=== PATIENT | female | born 1965 | race Caucasian/White ===

== ENCOUNTER → 2017-11-18 | Outpatient (CLI) | payer MEDICAID ==
[~2017-11-18] MED LIST: ANTIHISTAMINE PO
[2017-11-18 12:01] LABS: INTERNATIONAL NORMALIZED RATIO 0.96 (0.93-1.1); PROTHROMBIN TIME 9.9 Seconds (9.6-11.5)
[2017-11-18 12:06] LABS: ALBUMIN 3.9 g/dL (3.4-5.0); ANION GAP 6 mmol/L (5-15); CALCIUM 8.6 mg/dL (8.5-10.1); CHLORIDE 103 mmol/L (98-107)
[2017-11-18 12:09] LABS: ALANINE AMINOTRANSFERASE 19 U/L (12-78); ALKALINE PHOSPHATASE 87 U/L (45-117); BILIRUBIN,TOTAL 0.4 mg/dL (0.2-1.0); CREATININE 1.03 mg/dL (0.55-1.02); TOTAL PROTEIN 8.3 g/dL (6.4-8.2)
[2017-11-18 12:10] LABS: BASOPHILS # (AUTO) 0.11 x10^3/uL (0-0.1); BASOPHILS % (AUTO) 1 % (0-1); EOSINOPHILS # (AUTO) 0.34 x10^3/uL (0-0.4); EOSINOPHILS % (AUTO) 3 % (1-7); LYMPHOCYTES # (AUTO) 3.18 x10^3/uL (1-3.4); LYMPHOCYTES % (AUTO) 30 % (22-44); MD NO; MEAN CORPUSCULAR HEMOGLOBIN 31.4 pg (27.0-34.8); MEAN CORPUSCULAR VOLUME 94.9 fL (80-100); MEAN PLATELET VOLUME 9.2 fL (7.4-10.4); MONOCYTES # (AUTO) 0.82 x10^3/uL (0.2-0.8); MONOCYTES % (AUTO) 8 % (2-9); NEUTROPHILS # (AUTO) 6.03 x10^3/uL (1.8-6.8); NEUTROPHILS % (AUTO) 58 % (42-75); PLATELET COUNT 276 x10^3/uL (130-400); RED BLOOD COUNT 4.93 x10^6/uL (3.82-5.3); RED CELL DISTRIBUTION WIDTH 14.8 % (9.6-15.2)
== END | disposition home or self-care (01) ==
LOC: STAR 10:37
PROVIDERS: ATTEND Specialist
DX: Z01.818 Encounter for other preprocedural examination (principal)
CPT/HCPCS: 36415; 71046; 80053; 85025; 85610; 85730; 93005

== ENCOUNTER 2017-11-22 06:18 | Inpatient (IN) | payer MEDICAID ==
[~2017-11-22] VITALS: Ht 162.6 cm; Wt 99.7 kg
[2017-11-22] MEDS ORDERED: BUPIVACAINE/PF 0.25% ONE (06:51)
[2017-11-22] MEDS ORDERED: LACTATED RINGERS 1,000 ML IV SCH (07:17)
[2017-11-22] MEDS ORDERED: SCOPOLAMINE PATCH, 1.5MG PATCH.TD72 TD ONE (07:30)
[2017-11-22] MEDS ORDERED: ACETAMINOPHEN 500 MG TABLET PO ONE (07:30)
[2017-11-22] MEDS ORDERED: OxyconTIN ER 10 MG TAB.ER PO ONE (07:30)
[2017-11-22] MEDS ORDERED: GABAPENTIN 300 MG CAPSULE PO ONE (07:30)
[2017-11-22 07:32] LABS: HCG UR SG 1.029 (1.003-1.030)
[2017-11-22 07:54] VITALS: BP 132/84
[2017-11-22] MEDS ORDERED: MIDAZOLAM 1 MG/ML, 2ML ONE (08:37)
[2017-11-22] MEDS ORDERED: FENTANYL PF 250 MCG/5ML ONE (08:37)
[2017-11-22] MEDS ORDERED: ONDANSETRON 2MG/ML, 2ML ONE (09:48)
[2017-11-22] MEDS ORDERED: DEXAMETHASONE 4 MG/ML, 1ML ONE (09:48)
[2017-11-22] MEDS ORDERED: GLYCOPYRROLATE 0.2MG/1ML, 5ML ONE (09:48)
[2017-11-22] MEDS ORDERED: CEFAZOLIN 1,000 MG ONE (09:48)
[2017-11-22] MEDS ORDERED: PROPOFOL 10 MG/ML, 20ML ONE (09:48)
[2017-11-22] MEDS ORDERED: SUCCINYLCHOLINE 20 MG/ML, 10ML ONE (09:48)
[2017-11-22] MEDS ORDERED: ROCURONIUM 10 MG/ML,10ML ONE (09:48)
[2017-11-22] MEDS ORDERED: NEOSTIGMINE 1 MG/ML, 10ML ONE (09:48)
[2017-11-22] MEDS ORDERED: ONDANSETRON 2MG/ML, 2ML IVPush PRN ×2 (10:30)
[2017-11-22] MEDS ORDERED: FENTANYL PF 100 MCG/2ML IV PRN (10:30)
[2017-11-22] MEDS ORDERED: PROMETHAZINE 25 MG/ML, 1ML IV PRN ×2 (10:30)
[2017-11-22] MEDS ORDERED: hydrALAzine 20 MG/ML, 1ML IV PRN ×2 (10:30)
[2017-11-22] MEDS ORDERED: OXYcodone 5 MG/5 ML ORAL.SOL UDC PO PRN ×2 (10:30)
[2017-11-22] MEDS ORDERED: HYDROmorphone 1 MG/ML, 1ML IV PRN ×2 (10:30)
[2017-11-22] MEDS ORDERED: MEPERIDINE/PF 25MG/0.5ML IVPush PRN ×2 (10:30)
[2017-11-22] MEDS ORDERED: LABETALOL 5MG/ML, 20ML IV PRN ×2 (10:30)
[2017-11-22] MEDS ORDERED: KETOROLAC 30 MG/1 ML IV PRN ×2 (10:30)
[2017-11-22] MEDS ORDERED: METOCLOPRAMIDE 5 MG/ML, 2ML IV PRN ×2 (10:30)
[2017-11-22] MEDS ORDERED: ALBUTEROL SULFATE 2.5 MG/3 ML NPPB PRN ×2 (10:30)
[2017-11-22] MEDS ORDERED: FENTANYL PF 100 MCG/2ML ONE (12:34)
[2017-11-22] MEDS ORDERED: OXYcodone 5 MG/5 ML ORAL.SOL UDC ONE (12:34)
[2017-11-22] MEDS ORDERED: MEPERIDINE/PF 25MG/0.5ML ONE (12:34)
[2017-11-22] MEDS: FENTANYL PF 100 MCG/2ML IV PRN ×2 (12:37→12:43)
[2017-11-22] MEDS ORDERED: ONDANSETRON 2MG/ML, 2ML IV PRN (14:00)
[2017-11-22] MEDS: OXYcodone/APAP 5/325MG TABLET PO PRN ×2 (18:26→22:50)
[2017-11-22] MEDS: LACTATED RINGERS 1,000 ML IV SCH (18:26)
[2017-11-22 19:44] VITALS: BP 152/109
[2017-11-22] MEDS: MORPHINE SULFATE 4 MG/ML, 1ML IVPush PRN (21:20)
[2017-11-23] MEDS: OXYcodone/APAP 5/325MG TABLET PO PRN ×4 (02:57→20:09)
[2017-11-23 05:00] VITALS: BP 121/71
[2017-11-23] MEDS: LACTATED RINGERS 1,000 ML IV SCH ×2 (07:58→20:12)
[2017-11-23 11:09] VITALS: BP 128/87
[2017-11-23] MEDS: MORPHINE SULFATE 4 MG/ML, 1ML IVPush PRN (11:23)
[2017-11-23] MEDS ORDERED: LORazepam 1MG TABLET PO PRN (11:30)
[2017-11-23 16:00] VITALS: BP 124/76
[2017-11-23] MEDS ORDERED: MORPHINE SULFATE 4 MG/ML, 1ML IVPush PRN (17:00)
[2017-11-23 19:33] VITALS: BP 132/82
[2017-11-24] MEDS: OXYcodone/APAP 5/325MG TABLET PO PRN ×3 (01:40→10:40)
[2017-11-24 04:47] VITALS: BP 147/84
[2017-11-24 07:44] VITALS: BP 136/88
[2017-11-24] MEDS: LACTATED RINGERS 1,000 ML IV SCH (08:30)
[2017-11-24] MEDS ORDERED: OXYC-306 PO (12:05)
[2017-11-24] MEDS ORDERED: ONDA4TAB7 PO (12:05)
== END 2017-11-24 12:32 | disposition home health service (06) | DRG 745 ==
LOC: OUT 06:18 → 4NOR 13:32 → OUT 13:46
PROVIDERS: ADMIT Specialist; ATTEND Specialist
PROC: 0JBC0ZZ Excision of Pelvic Region Subcutaneous Tissue and Fascia, Open Approach (ICD-10-PCS; 2017-11-22)
PROC: 0UDB7ZZ Extraction of Endometrium, Via Natural or Artificial Opening (ICD-10-PCS; 2017-11-22)
PROC: 0UBC7ZX Excision of Cervix, Via Natural or Artificial Opening, Diagnostic (ICD-10-PCS; principal; 2017-11-22 09:00)
DX: C54.1 Malignant neoplasm of endometrium (principal); N88.8 Other specified noninflammatory disorders of cervix uteri; Z80.3 Family history of malignant neoplasm of breast; Z80.49 Family history of malignant neoplasm of other genital organs; Z82.3 Family history of stroke; Z98.51 Tubal ligation status; E66.9 Obesity, unspecified; Z68.37 Body mass index [BMI] 37.0-37.9, adult
CPT/HCPCS: 36415; 81025; 86850; 86900; 88305; 88307; 88331; J0690; J1100; J2175; J2250; J2405; J2704; J2710; J3010; J3490; J0330; J7120

== ENCOUNTER → 2017-12-08 | Outpatient (CLI) | payer MEDICAID ==
[~2017-12-08] MED LIST changes: +OMNIPAQUE 350 MG/ML, 100ML BOTTLE ONE; +ONDA4TAB7 PO; +OXYC-306 PO
== END | disposition home or self-care (01) ==
LOC: RAD 13:44
PROVIDERS: ATTEND Specialist
DX: C54.1 Malignant neoplasm of endometrium (principal); N85.2 Hypertrophy of uterus; R93.8 Abnormal findings on diagnostic imaging of other specified body structures; E66.9 Obesity, unspecified
CPT/HCPCS: 71260; 74177; Q9967

== ENCOUNTER 2017-12-13 08:45 | Observation (INO) | payer MEDICAID ==
[~2017-12-13] VITALS: Ht 162.6 cm; Wt 99.3 kg
[~2017-12-13 08:45] MED LIST changes: +BUPIVACAINE 0.25% ONE; -OMNIPAQUE 350 MG/ML, 100ML BOTTLE ONE
[2017-12-13] MEDS ORDERED: LACTATED RINGERS 1,000 ML IV SCH (09:21)
[2017-12-13 09:24] VITALS: BP 136/91
[2017-12-13] MEDS ORDERED: ACETAMINOPHEN 500 MG TABLET PO ONE (11:59)
[2017-12-13] MEDS ORDERED: GABAPENTIN 300 MG CAPSULE PO ONE (11:59)
[2017-12-13] MEDS ORDERED: ONDANSETRON ODT 8 MG PO ONE (11:59)
[2017-12-13] MEDS ORDERED: SCOPOLAMINE PATCH, 1.5MG PATCH.TD72 TD ONE (11:59)
[2017-12-13] MEDS ORDERED: OxyconTIN ER 20 MG TAB.ER PO ONE (11:59)
[2017-12-13] MEDS ORDERED: FENTANYL PF 250 MCG/5ML ONE (12:09)
[2017-12-13] MEDS ORDERED: MIDAZOLAM 1 MG/ML, 2ML ONE (12:09)
[2017-12-13] MEDS ORDERED: LIDOCAINE-MPF 2% ,5ML ONE (12:11)
[2017-12-13] MEDS ORDERED: ROCURONIUM 10MG/ML,5ML ONE (12:11)
[2017-12-13] MEDS ORDERED: PROPOFOL 10 MG/ML, 20ML ONE (12:11)
[2017-12-13] MEDS ORDERED: DEXAMETHASONE 4 MG/ML, 1ML ONE ×4 (12:43→15:37)
[2017-12-13] MEDS ORDERED: CEFOTETAN 2 GM ONE (13:02)
[2017-12-13] MEDS ORDERED: FENTANYL PF 100 MCG/2ML IV PRN (13:30)
[2017-12-13] MEDS ORDERED: PROMETHAZINE 25 MG/ML, 1ML IV PRN (13:30)
[2017-12-13] MEDS ORDERED: hydrALAzine 20 MG/ML, 1ML IV PRN (13:30)
[2017-12-13] MEDS ORDERED: OXYcodone 5 MG/5 ML ORAL.SOL UDC PO PRN (13:30)
[2017-12-13] MEDS ORDERED: LABETALOL 5MG/ML, 20ML IV PRN (13:30)
[2017-12-13] MEDS ORDERED: MEPERIDINE/PF 25MG/0.5ML IVPush PRN (13:30)
[2017-12-13] MEDS ORDERED: LORazepam 2 MG/ML, 1ML IVPush PRN (13:30)
[2017-12-13] MEDS ORDERED: HALOPERIDOL 5 MG/ML IV PRN (13:30)
[2017-12-13] MEDS ORDERED: FENTANYL PF 100 MCG/2ML ONE ×2 (14:19→15:46)
[2017-12-13] MEDS: HYDROmorphone 1 MG/ML, 1ML IV PRN ×4 (15:12→15:42)
[2017-12-13] MEDS ORDERED: HYDROmorphone 2 MG/ML, 1ML ONE (15:20)
[2017-12-13] MEDS ORDERED: OXYcodone 5 MG/5 ML ORAL.SOL UDC ONE (15:21)
[2017-12-13] MEDS ORDERED: HALOPERIDOL 5 MG/ML ONE (15:30)
[2017-12-13] MEDS ORDERED: MORPHINE SULFATE 4 MG/ML, 1ML IV PRN (18:30)
[2017-12-13] MEDS ORDERED: ONDANSETRON ODT 4 MG PO PRN (18:30)
[2017-12-13] MEDS ORDERED: ONDANSETRON 2MG/ML, 2ML IVPush PRN (18:30)
[2017-12-13 19:30] VITALS: BP 141/81
[2017-12-13] MEDS: OXYcodone/APAP 7.5/325MG TABLET PO PRN (22:05)
[2017-12-13] MEDS: METOCLOPRAMIDE 5 MG/ML, 2ML IVPush SCH (22:06)
[2017-12-14 00:05] VITALS: BP 126/80
[2017-12-14] MEDS: OXYcodone/APAP 7.5/325MG TABLET PO PRN ×2 (01:51→06:05)
[2017-12-14] MEDS: METOCLOPRAMIDE 5 MG/ML, 2ML IVPush SCH ×2 (04:11→09:24)
[2017-12-14 04:16] VITALS: BP 141/88
[2017-12-14 08:30] VITALS: BP 132/78
[2017-12-14] MEDS ORDERED: ONDA4TAB7 PO (09:46)
== END 2017-12-14 09:55 | disposition home or self-care (01) ==
LOC: OUT 08:45 → 4NOR 18:00 → OUT 19:52 → 4NOR 19:53 → DCLOUNGE 12-14 09:42
PROVIDERS: ADMIT Specialist; ATTEND Specialist
DX: C49.9 Malignant neoplasm of connective and soft tissue, unspecified (principal); N85.2 Hypertrophy of uterus; E66.9 Obesity, unspecified
CPT/HCPCS: 58573; 88309; 96374; 96376; G0378; J1100; J1170; J1630; J2250; J2704; J2765; J3010; J3490; J7120; Q0162; S2900; S0074

== ENCOUNTER 2020-07-16 08:19 | Inpatient (IN) | payer MEDICAID ==
[2020-07-15 09:20] LABS: BASOPHILS % (AUTO) 1 % (0-1); EOSINOPHILS % (AUTO) 5 % (1-7); LYMPHOCYTES % (AUTO) 21 % (22-44); MEAN CORPUSCULAR HEMOGLOBIN 31.6 pg (27.0-34.8); MEAN CORPUSCULAR HGB CONC 33.6 g/dL (32.4-35.8); MEAN PLATELET VOLUME 6.5 fL (7.4-10.4); MONOCYTES % (AUTO) 7 % (2-9); NEUTROPHILS % (AUTO) 67 % (42-75); PLATELET COUNT 421 x10^3/uL (130-400); RED BLOOD COUNT 3.98 x10^6/uL (3.82-5.3)
[2020-07-15 09:32] LABS: ALBUMIN 3.3 g/dL (3.4-5.0); CALCIUM 9.2 mg/dL (8.5-10.1); INTERNATIONAL NORMALIZED RATIO 0.95 (0.93-1.1); PROTHROMBIN TIME 10.2 Seconds (9.6-11.5)
[2020-07-15 09:35] LABS: MD NO
[2020-07-15 09:36] LABS: ALANINE AMINOTRANSFERASE 19 U/L (12-78); ALKALINE PHOSPHATASE 158 U/L (45-117); BILIRUBIN,TOTAL 0.3 mg/dL (0.2-1.0); CREATININE 0.93 mg/dL (0.55-1.02); TOTAL PROTEIN 8.2 g/dL (6.4-8.2)
[2020-07-15 09:44] LABS: ANION GAP 7 mmol/L (5-15); CHLORIDE 101 mmol/L (98-107)
[~2020-07-16] VITALS: Ht 162.6 cm; Wt 74.3 kg
[~2020-07-16 08:19] MED LIST changes: -BUPIVACAINE 0.25% ONE; +LEVO150T5 PO; -OXYC-306 PO; +OXYC1TAB14 PO; +OXYC1TAB17 PO; +[UNRECOGNIZED DRUG - OTHER]; +[UNRECOGNIZED DRUG - OTHER] PO
[2020-07-16] MEDS ORDERED: CHLORHEXIDINE 15 ML UDC MM ONE (09:00)
[2020-07-16] MEDS: LACTATED RINGERS 1,000 ML IV SCH (09:17)
[2020-07-16] MEDS ORDERED: CEFOTETAN PMX 2GM/50ML 50 ML IVPB ONE (09:30)
[2020-07-16] MEDS ORDERED: OXYcodone/APAP 5/325MG TABLET PO ONE (13:00)
[2020-07-16] MEDS ORDERED: MIDAZOLAM 1 MG/ML, 2ML ONE (13:41)
[2020-07-16] MEDS ORDERED: FENTANYL PF 250 MCG/5ML ONE ×3 (13:42→15:32)
[2020-07-16] MEDS ORDERED: KETAMINE 10 MG/ML, 20ML ONE (13:43)
[2020-07-16] MEDS ORDERED: ALBUMIN HUMAN 5% 500 ML ONE (13:47)
[2020-07-16] MEDS ORDERED: DEXAMETHASONE 4 MG/ML, 1ML ONE (13:48)
[2020-07-16] MEDS ORDERED: hydrALAzine 20 MG/ML, 1ML IV PRN (15:30)
[2020-07-16] MEDS ORDERED: HYDROmorphone 1 MG/ML, 1ML INJ IVPush PRN (15:30)
[2020-07-16] MEDS ORDERED: MEPERIDINE/PF 25MG/0.5ML IVPush PRN (15:30)
[2020-07-16] MEDS ORDERED: ONDANSETRON 2MG/ML, 2ML IVPush PRN ×2 (15:30→21:00)
[2020-07-16] MEDS ORDERED: ACETAMINOPHEN 325 MG TABLET PO PRN (15:30)
[2020-07-16] MEDS ORDERED: LORazepam 2 MG/ML, 1ML IVPush PRN (15:30)
[2020-07-16] MEDS ORDERED: PROMETHAZINE 25 MG/ML, 1ML IVPush PRN (15:30)
[2020-07-16] MEDS ORDERED: OXYcodone 5 MG/5 ML ORAL.SOL UDC PO PRN (15:30)
[2020-07-16] MEDS ORDERED: ALBUTEROL SULFATE 2.5 MG/3 ML NPPB PRN (15:30)
[2020-07-16] MEDS ORDERED: LABETALOL 5MG/ML, 20ML IV PRN (15:30)
[2020-07-16] MEDS ORDERED: METHOCARBAMOL 1,000 MG in DEXTROSE 5% 100 ML IV PRN (15:30)
[2020-07-16] MEDS ORDERED: PROMETHAZINE 25 MG SUPP PR PRN (15:30)
[2020-07-16] MEDS ORDERED: ROCURONIUM 10MG/ML,5ML ONE (19:44)
[2020-07-16] MEDS ORDERED: GLYCOPYRROLATE 0.2MG/1ML, 5ML ONE (19:44)
[2020-07-16] MEDS ORDERED: NEOSTIGMINE 1 MG/ML, 10ML ONE (19:44)
[2020-07-16] MEDS ORDERED: PROPOFOL 10 MG/ML, 20ML ONE (19:44)
[2020-07-16] MEDS ORDERED: CEFAZOLIN 1,000 MG ONE (19:44)
[2020-07-16] MEDS ORDERED: SUCCINYLCHOLINE 20 MG/ML, 10ML ONE (19:44)
[2020-07-16] MEDS ORDERED: ONDANSETRON 2MG/ML, 2ML ONE (19:44)
[2020-07-16] MEDS ORDERED: KETOROLAC 30 MG/1 ML IV SCH (20:30)
[2020-07-16] MEDS ORDERED: PROCHLORPERAZINE 5 MG/ML, 2ML IV PRN (20:30)
[2020-07-16] MEDS ORDERED: POTASSIUM CHLORIDE 20 MEQ in D5%-0.45% NACL 1,000 ML IV SCH (20:30)
[2020-07-16] MEDS ORDERED: KETOROLAC 30 MG/1 ML IV PRN (21:00)
[2020-07-16] MEDS: FENTANYL PF 100 MCG/2ML IV PRN ×2 (21:00→21:16)
[2020-07-16] MEDS ORDERED: KETOROLAC 30 MG/1 ML ONE (21:27)
[2020-07-16 22:22] VITALS: BP 96/57
[2020-07-16] MEDS: D5%-0.9% NACL+KCL 20MEQ 1,000 ML IV SCH (23:41)
[2020-07-16] MEDS: FAMOTIDINE 20 MG/2 ML IV SCH (23:41)
[2020-07-17 00:59] VITALS: BP 112/79
[2020-07-17 04:42] VITALS: BP 98/61
[2020-07-17 05:27] LABS: BASOPHILS % (AUTO) 0 % (0-1); EOSINOPHILS % (AUTO) 0 % (1-7); LYMPHOCYTES % (AUTO) 12 % (22-44); MEAN CORPUSCULAR HEMOGLOBIN 31.2 pg (27.0-34.8); MEAN CORPUSCULAR HGB CONC 32.5 g/dL (32.4-35.8); MONOCYTES % (AUTO) 5 % (2-9); NEUTROPHILS % (AUTO) 82 % (42-75); PLATELET COUNT 340 x10^3/uL (130-400); RED BLOOD COUNT 2.56 x10^6/uL (3.82-5.3); RED CELL DISTRIBUTION WIDTH 14.7 % (9.6-15.2)
[2020-07-17 05:30] LABS: MD NO
[2020-07-17 05:34] LABS: ALBUMIN 2.5 g/dL (3.4-5.0); ANION GAP 9 mmol/L (5-15); CALCIUM 7.7 mg/dL (8.5-10.1); CHLORIDE 110 mmol/L (98-107)
[2020-07-17 05:35] LABS: CREATININE 1.21 mg/dL (0.55-1.02)
[2020-07-17] MEDS: CEFOTETAN PMX 2GM/50ML 50 ML IV SCH ×2 (05:57→18:00)
[2020-07-17] MEDS: D5%-0.9% NACL+KCL 20MEQ 1,000 ML IV SCH ×3 (05:57→23:34)
[2020-07-17] MEDS: LEVOTHYROXINE 100 MCG INJ IVPush SCH (07:46)
[2020-07-17] MEDS: FAMOTIDINE 20 MG/2 ML IV SCH (07:46)
[2020-07-17 08:00] VITALS: BP 98/63
[2020-07-17 20:00] VITALS: BP 98/60
[2020-07-17] MEDS ORDERED: FAMOTIDINE 20 MG/2 ML IV SCH (21:00)
[2020-07-17] MEDS: LORazepam 2 MG/ML, 1ML IVPush PRN (21:55)
[2020-07-18] VITALS (11 sets, daily range): BP systolic 96–135; BP diastolic 47–89
[2020-07-18] MEDS: LORazepam 2 MG/ML, 1ML IVPush PRN ×2 (03:43→16:12)
[2020-07-18 04:52] LABS: ANION GAP 5 mmol/L (5-15); CALCIUM 7.7 mg/dL (8.5-10.1); CHLORIDE 111 mmol/L (98-107); CREATININE 0.88 mg/dL (0.55-1.02)
[2020-07-18 04:57] LABS: BASOPHILS % (AUTO) 0 % (0-1); EOSINOPHILS % (AUTO) 0 % (1-7); LYMPHOCYTES % (AUTO) 13 % (22-44); MEAN CORPUSCULAR HEMOGLOBIN 32.3 pg (27.0-34.8); MEAN CORPUSCULAR HGB CONC 34.3 g/dL (32.4-35.8); MONOCYTES % (AUTO) 6 % (2-9); NEUTROPHILS % (AUTO) 80 % (42-75); PLATELET COUNT 282 x10^3/uL (130-400); RED BLOOD COUNT 2.09 x10^6/uL (3.82-5.3); RED CELL DISTRIBUTION WIDTH 14.8 % (9.6-15.2)
[2020-07-18 05:09] LABS: MD NO
[2020-07-18] MEDS: CEFOTETAN PMX 2GM/50ML 50 ML IV SCH ×2 (06:14→17:36)
[2020-07-18] MEDS: LEVOTHYROXINE 100 MCG INJ IVPush SCH (09:00)
[2020-07-18] MEDS: D5%-0.9% NACL+KCL 20MEQ 1,000 ML IV SCH ×2 (10:11→17:35)
[2020-07-18] MEDS: FAMOTIDINE 20 MG/2 ML IV SCH (20:26)
[2020-07-18] MEDS ORDERED: LORazepam 2 MG/ML, 1ML IVPush ONE (20:30)
[2020-07-19 01:27] VITALS: BP 137/88
[2020-07-19] MEDS: D5%-0.9% NACL+KCL 20MEQ 1,000 ML IV SCH ×3 (01:45→18:32)
[2020-07-19] MEDS: LORazepam 2 MG/ML, 1ML IVPush PRN ×3 (01:45→18:33)
[2020-07-19] MEDS: DIPHENHYDRAMINE 50 MG/ML, 1ML IVPush PRN (04:07)
[2020-07-19 05:33] LABS: BASOPHILS % (AUTO) 0 % (0-1); EOSINOPHILS % (AUTO) 1 % (1-7); LYMPHOCYTES % (AUTO) 12 % (22-44); MEAN CORPUSCULAR HEMOGLOBIN 31.4 pg (27.0-34.8); MEAN CORPUSCULAR HGB CONC 34.1 g/dL (32.4-35.8); MEAN PLATELET VOLUME 6.9 fL (7.4-10.4); MONOCYTES % (AUTO) 5 % (2-9); NEUTROPHILS % (AUTO) 82 % (42-75); PLATELET COUNT 294 x10^3/uL (130-400)
[2020-07-19 05:36] LABS: MD NO
[2020-07-19 05:46] LABS: ALANINE AMINOTRANSFERASE 10 U/L (12-78); ALBUMIN 1.9 g/dL (3.4-5.0); ANION GAP 5 mmol/L (5-15); CHLORIDE 110 mmol/L (98-107)
[2020-07-19 05:49] LABS: ALKALINE PHOSPHATASE 96 U/L (45-117); BILIRUBIN,TOTAL 0.4 mg/dL (0.2-1.0); TOTAL PROTEIN 5.8 g/dL (6.4-8.2)
[2020-07-19] MEDS: CEFOTETAN PMX 2GM/50ML 50 ML IV SCH ×2 (06:03→18:32)
[2020-07-19 07:25] VITALS: BP 119/86
[2020-07-19] MEDS: LEVOTHYROXINE 100 MCG INJ IVPush SCH (09:15)
[2020-07-19] MEDS: FAMOTIDINE 20 MG/2 ML IV SCH ×2 (09:22→22:10)
[2020-07-19 12:59] VITALS: BP 131/91
[2020-07-19] MEDS: OXYcodone/APAP 7.5/325MG TABLET PO PRN (15:51)
[2020-07-19] MEDS: KETOROLAC 30 MG/1 ML IVPush PRN ×2 (15:51→22:11)
[2020-07-19 20:37] VITALS: BP 108/78
[2020-07-20 03:01] VITALS: BP 118/85
[2020-07-20] MEDS: D5%-0.9% NACL+KCL 20MEQ 1,000 ML IV SCH ×2 (03:28→12:10)
[2020-07-20] MEDS: LORazepam 2 MG/ML, 1ML IVPush PRN ×3 (06:40→21:38)
[2020-07-20] MEDS: KETOROLAC 30 MG/1 ML IVPush PRN ×3 (07:22→21:41)
[2020-07-20] MEDS: LEVOTHYROXINE 100 MCG INJ IVPush SCH (07:22)
[2020-07-20] MEDS: FAMOTIDINE 20 MG/2 ML IV SCH ×2 (07:22→21:22)
[2020-07-20] MEDS: OXYcodone/APAP 7.5/325MG TABLET PO PRN ×3 (07:23→18:42)
[2020-07-20 07:26] LABS: BASOPHILS % (AUTO) 0 % (0-1); EOSINOPHILS % (AUTO) 3 % (1-7); LYMPHOCYTES % (AUTO) 16 % (22-44); MEAN CORPUSCULAR HEMOGLOBIN 31.6 pg (27.0-34.8); MEAN CORPUSCULAR HGB CONC 33.7 g/dL (32.4-35.8); MEAN PLATELET VOLUME 6.9 fL (7.4-10.4); MONOCYTES % (AUTO) 7 % (2-9); NEUTROPHILS % (AUTO) 75 % (42-75); PLATELET COUNT 327 x10^3/uL (130-400); RED BLOOD COUNT 2.74 x10^6/uL (3.82-5.3); RED CELL DISTRIBUTION WIDTH 14.9 % (9.6-15.2)
[2020-07-20 07:28] LABS: MD NO
[2020-07-20 07:31] LABS: ANION GAP 5 mmol/L (5-15); CHLORIDE 112 mmol/L (98-107); CREATININE 0.87 mg/dL (0.55-1.02)
[2020-07-20 07:42] VITALS: BP 172/97
[2020-07-20 13:10] VITALS: BP 141/90
[2020-07-20 19:42] VITALS: BP 150/95
[2020-07-21 01:55] VITALS: BP 132/85
[2020-07-21] MEDS: OXYcodone/APAP 7.5/325MG TABLET PO PRN (01:59)
[2020-07-21] MEDS: LEVOTHYROXINE 150 MCG TABLET PO SCH (06:04)
[2020-07-21 07:19] VITALS: BP 142/85
[2020-07-21] MEDS: FAMOTIDINE 20 MG/2 ML IV SCH ×2 (09:56→20:36)
[2020-07-21] MEDS: LACTATED RINGERS 1,000 ML IV SCH (12:45)
[2020-07-21 13:09] VITALS: BP 125/83
[2020-07-21] MEDS: LORazepam 2 MG/ML, 1ML IVPush PRN (20:24)
[2020-07-21 20:31] VITALS: BP 125/78
[2020-07-21] MEDS: KETOROLAC 30 MG/1 ML IVPush PRN (20:31)
[2020-07-22 02:27] VITALS: BP 122/75
[2020-07-22 04:30] LABS: BASOPHILS % (AUTO) 1 % (0-1); EOSINOPHILS % (AUTO) 1 % (1-7); LYMPHOCYTES % (AUTO) 16 % (22-44); MEAN CORPUSCULAR HEMOGLOBIN 31.5 pg (27.0-34.8); MEAN CORPUSCULAR HGB CONC 34.2 g/dL (32.4-35.8); MEAN PLATELET VOLUME 7.1 fL (7.4-10.4); MONOCYTES % (AUTO) 8 % (2-9); NEUTROPHILS % (AUTO) 74 % (42-75); PLATELET COUNT 375 x10^3/uL (130-400); RED BLOOD COUNT 2.62 x10^6/uL (3.82-5.3); RED CELL DISTRIBUTION WIDTH 14.7 % (9.6-15.2)
[2020-07-22 04:34] LABS: MD NO
[2020-07-22 04:39] LABS: ANION GAP 7 mmol/L (5-15); CALCIUM 8.3 mg/dL (8.5-10.1); CHLORIDE 105 mmol/L (98-107); CREATININE 0.69 mg/dL (0.55-1.02)
[2020-07-22] MEDS: LEVOTHYROXINE 150 MCG TABLET PO SCH (06:42)
[2020-07-22] MEDS: FAMOTIDINE 20 MG/2 ML IV SCH ×2 (09:00→21:00)
[2020-07-22 12:40] VITALS: BP 131/84
[2020-07-22] MEDS: LORazepam 0.5MG TABLET PO PRN (15:05)
[2020-07-22] MEDS: KETOROLAC 30 MG/1 ML IVPush PRN (16:39)
[2020-07-22] MEDS: OXYcodone/APAP 7.5/325MG TABLET PO PRN (18:12)
[2020-07-22 19:22] VITALS: BP 104/70
[2020-07-22] MEDS ORDERED: CEFAZOLIN 1,000 MG IV SCH (21:00)
[2020-07-22] MEDS ORDERED: CEFAZOLIN 1,000 MG IVPB SCH (21:00)
[2020-07-22] MEDS: CEFAZOLIN PMX 1GM/50ML 50 ML IVPB SCH (22:28)
[2020-07-23 01:07] VITALS: BP 118/81
[2020-07-23 03:52] LABS: BASOPHILS % (AUTO) 0 % (0-1); EOSINOPHILS % (AUTO) 2 % (1-7); LYMPHOCYTES % (AUTO) 17 % (22-44); MEAN CORPUSCULAR HEMOGLOBIN 31.7 pg (27.0-34.8); MEAN CORPUSCULAR HGB CONC 34.4 g/dL (32.4-35.8); MEAN PLATELET VOLUME 6.8 fL (7.4-10.4); MONOCYTES % (AUTO) 8 % (2-9); NEUTROPHILS % (AUTO) 73 % (42-75); PLATELET COUNT 472 x10^3/uL (130-400); RED BLOOD COUNT 2.69 x10^6/uL (3.82-5.3); RED CELL DISTRIBUTION WIDTH 14.3 % (9.6-15.2)
[2020-07-23 03:53] LABS: MD NO
[2020-07-23] MEDS: CEFAZOLIN PMX 1GM/50ML 50 ML IVPB SCH ×4 (04:51→22:45)
[2020-07-23] MEDS: LEVOTHYROXINE 150 MCG TABLET PO SCH (05:00)
[2020-07-23 06:49] VITALS: BP 122/85
[2020-07-23] MEDS: FAMOTIDINE 20 MG/2 ML IV SCH ×2 (09:17→20:01)
[2020-07-23] MEDS: OXYcodone/APAP 7.5/325MG TABLET PO PRN (09:18)
[2020-07-23 12:44] VITALS: BP 107/71
[2020-07-23 19:26] VITALS: BP 115/79
[2020-07-23] MEDS: OXYcodone/APAP 7.5/325MG TABLET PO SCH (20:01)
[2020-07-24] MEDS: OXYcodone/APAP 7.5/325MG TABLET PO SCH ×6 (00:15→21:41)
[2020-07-24 00:19] VITALS: BP 112/77
[2020-07-24] MEDS: FAMOTIDINE 20 MG TABLET PO SCH (00:50)
[2020-07-24] MEDS: CEFAZOLIN PMX 1GM/50ML 50 ML IVPB SCH ×3 (04:05→16:06)
[2020-07-24 04:24] LABS: BASOPHILS % (AUTO) 0 % (0-1); EOSINOPHILS % (AUTO) 2 % (1-7); LYMPHOCYTES % (AUTO) 15 % (22-44); MEAN CORPUSCULAR HEMOGLOBIN 31.4 pg (27.0-34.8); MONOCYTES % (AUTO) 9 % (2-9); NEUTROPHILS % (AUTO) 74 % (42-75); PLATELET COUNT 510 x10^3/uL (130-400); RED BLOOD COUNT 2.67 x10^6/uL (3.82-5.3); RED CELL DISTRIBUTION WIDTH 14.4 % (9.6-15.2)
[2020-07-24 04:27] LABS: MD NO
[2020-07-24 04:37] LABS: ANION GAP 4 mmol/L (5-15); CALCIUM 8.5 mg/dL (8.5-10.1); CHLORIDE 105 mmol/L (98-107); CREATININE 0.63 mg/dL (0.55-1.02)
[2020-07-24] MEDS: LEVOTHYROXINE 150 MCG TABLET PO SCH (04:59)
[2020-07-24] MEDS: LORazepam 0.5MG TABLET PO PRN (04:59)
[2020-07-24 06:32] VITALS: BP 105/74
[2020-07-24] MEDS: FAMOTIDINE 20 MG/2 ML IV SCH (08:03)
[2020-07-24 13:17] VITALS: BP 121/82
[2020-07-24] MEDS ORDERED: VANCOMYCIN IV SCH (17:30)
[2020-07-24] MEDS: VANCOMYCIN PMX 1GM/200ML 200 ML IVPB SCH (18:19)
[2020-07-24] MEDS: MORPHINE SULFATE 4 MG/ML, 1ML IVPush PRN (18:37)
[2020-07-24 19:44] VITALS: BP 121/82
[2020-07-25] MEDS: OXYcodone/APAP 7.5/325MG TABLET PO SCH ×6 (00:47→20:34)
[2020-07-25 01:00] VITALS: BP 111/79
[2020-07-25] MEDS: VANCOMYCIN PMX 1GM/200ML 200 ML IVPB SCH ×2 (06:35→16:30)
[2020-07-25] MEDS: LEVOTHYROXINE 150 MCG TABLET PO SCH (06:36)
[2020-07-25 07:08] VITALS: BP 116/83
[2020-07-25] MEDS ORDERED: FAMOTIDINE 40 MG TABLET ONE ×2 (07:57→20:22)
[2020-07-25] MEDS: FAMOTIDINE 20 MG TABLET PO SCH ×2 (08:01→20:35)
[2020-07-25] MEDS: MORPHINE SULFATE 4 MG/ML, 1ML IVPush PRN (10:21)
[2020-07-25 10:48] LABS: BASOPHILS % (AUTO) 0 % (0-1); EOSINOPHILS % (AUTO) 1 % (1-7); LYMPHOCYTES % (AUTO) 12 % (22-44); MEAN CORPUSCULAR HEMOGLOBIN 30.8 pg (27.0-34.8); MEAN CORPUSCULAR HGB CONC 33.3 g/dL (32.4-35.8); MEAN PLATELET VOLUME 7.4 fL (7.4-10.4); MONOCYTES % (AUTO) 6 % (2-9); NEUTROPHILS % (AUTO) 80 % (42-75); PLATELET COUNT 610 x10^3/uL (130-400); RED BLOOD COUNT 2.63 x10^6/uL (3.82-5.3); RED CELL DISTRIBUTION WIDTH 14.8 % (9.6-15.2)
[2020-07-25 10:55] LABS: MD NO
[2020-07-25 13:30] VITALS: BP 107/78
[2020-07-25 19:21] VITALS: BP 119/82
[2020-07-26 00:12] VITALS: BP 125/74
[2020-07-26] MEDS: OXYcodone/APAP 7.5/325MG TABLET PO SCH ×3 (00:15→08:12)
[2020-07-26] MEDS: MORPHINE SULFATE 4 MG/ML, 1ML IVPush PRN (02:55)
[2020-07-26] MEDS: LEVOTHYROXINE 150 MCG TABLET PO SCH (04:22)
[2020-07-26] MEDS: VANCOMYCIN PMX 1GM/200ML 200 ML IVPB SCH ×2 (05:09→17:12)
[2020-07-26 05:33] LABS: BASOPHILS % (AUTO) 0 % (0-1); EOSINOPHILS % (AUTO) 1 % (1-7); LYMPHOCYTES % (AUTO) 10 % (22-44); MEAN CORPUSCULAR HEMOGLOBIN 30.5 pg (27.0-34.8); MEAN CORPUSCULAR HGB CONC 33.3 g/dL (32.4-35.8); MEAN PLATELET VOLUME 7.7 fL (7.4-10.4); MONOCYTES % (AUTO) 6 % (2-9); NEUTROPHILS % (AUTO) 82 % (42-75); PLATELET COUNT 659 x10^3/uL (130-400); RED BLOOD COUNT 2.76 x10^6/uL (3.82-5.3); RED CELL DISTRIBUTION WIDTH 14.7 % (9.6-15.2)
[2020-07-26 05:34] LABS: MD NO
[2020-07-26 05:50] LABS: ANION GAP 7 mmol/L (5-15); CALCIUM 8.2 mg/dL (8.5-10.1); CHLORIDE 103 mmol/L (98-107); CREATININE 0.74 mg/dL (0.55-1.02)
[2020-07-26 07:14] VITALS: BP 114/76
[2020-07-26] MEDS ORDERED: FAMOTIDINE 40 MG TABLET ONE (08:10)
[2020-07-26] MEDS: FAMOTIDINE 20 MG TABLET PO SCH ×2 (08:13→20:11)
[2020-07-26] MEDS: OXYcodone/APAP 10/325MG TABLET PO SCH ×3 (12:29→20:10)
[2020-07-26 12:35] VITALS: BP 133/68
[2020-07-26] MEDS ORDERED: OMNIPAQUE 350 MG/ML, 100ML BOTTLE ONE (14:46)
[2020-07-26 19:57] VITALS: BP 104/73
[2020-07-26] MEDS: LORazepam 0.5MG TABLET PO PRN (22:05)
[2020-07-27] MEDS: OXYcodone/APAP 10/325MG TABLET PO SCH ×6 (00:05→20:43)
[2020-07-27 00:07] VITALS: BP 112/67
[2020-07-27 04:42] LABS: BASOPHILS % (AUTO) 1 % (0-1); EOSINOPHILS % (AUTO) 1 % (1-7); LYMPHOCYTES % (AUTO) 12 % (22-44); MEAN CORPUSCULAR HEMOGLOBIN 30.7 pg (27.0-34.8); MEAN CORPUSCULAR HGB CONC 33.6 g/dL (32.4-35.8); MEAN PLATELET VOLUME 7.4 fL (7.4-10.4); MONOCYTES % (AUTO) 6 % (2-9); NEUTROPHILS % (AUTO) 81 % (42-75); PLATELET COUNT 759 x10^3/uL (130-400); RED BLOOD COUNT 2.78 x10^6/uL (3.82-5.3); RED CELL DISTRIBUTION WIDTH 14.6 % (9.6-15.2)
[2020-07-27 04:47] LABS: MD NO
[2020-07-27] MEDS: LEVOTHYROXINE 150 MCG TABLET PO SCH (05:11)
[2020-07-27] MEDS: VANCOMYCIN PMX 1GM/200ML 200 ML IVPB SCH ×2 (05:11→16:43)
[2020-07-27 06:35] VITALS: BP 121/81
[2020-07-27] MEDS ORDERED: FAMOTIDINE 40 MG TABLET ONE (08:49)
[2020-07-27] MEDS: FAMOTIDINE 20 MG TABLET PO SCH ×2 (08:52→20:43)
[2020-07-27] MEDS: LORazepam 0.5MG TABLET PO PRN ×2 (11:13→19:46)
[2020-07-27] MEDS: KETOROLAC 30 MG/1 ML IVPush PRN (11:15)
[2020-07-27 12:16] VITALS: BP 107/75
[2020-07-27] MEDS: ENOXAPARIN 40 MG/0.4 ML SQ SCH (16:41)
[2020-07-27 18:40] VITALS: BP 97/62
[2020-07-28] MEDS: OXYcodone/APAP 10/325MG TABLET PO SCH ×6 (00:15→20:52)
[2020-07-28 01:21] VITALS: BP 111/75
[2020-07-28 01:25] VITALS: BP 114/63
[2020-07-28] MEDS: VANCOMYCIN PMX 1GM/200ML 200 ML IVPB SCH ×2 (04:23→16:44)
[2020-07-28] MEDS: LORazepam 0.5MG TABLET PO PRN ×2 (06:02→12:41)
[2020-07-28] MEDS: LEVOTHYROXINE 150 MCG TABLET PO SCH (06:02)
[2020-07-28 07:43] VITALS: BP 125/80
[2020-07-28] MEDS ORDERED: FAMOTIDINE 40 MG TABLET ONE (09:25)
[2020-07-28] MEDS: FAMOTIDINE 20 MG TABLET PO SCH ×2 (09:26→20:52)
[2020-07-28 12:26] VITALS: BP 128/88
[2020-07-28] MEDS: KETOROLAC 30 MG/1 ML IVPush PRN (12:41)
[2020-07-28] MEDS: ENOXAPARIN 40 MG/0.4 ML SQ SCH (16:36)
[2020-07-28 18:33] VITALS: BP 112/70
[2020-07-28] MEDS ORDERED: VANCOMYCIN PER PHARMACY MC PRN (21:30)
[2020-07-28] MEDS ORDERED: PHARMACOKINETIC CONSULTATION MC ONE (22:00)
[2020-07-28] MEDS ORDERED: PHARMACOKINETIC MONITORING MC PRN (22:00)
[2020-07-29] MEDS: OXYcodone/APAP 10/325MG TABLET PO SCH ×6 (00:37→20:00)
[2020-07-29 00:40] VITALS: BP 104/69
[2020-07-29] MEDS: LORazepam 0.5MG TABLET PO PRN ×2 (03:03→14:25)
[2020-07-29 04:22] LABS: BASOPHILS % (AUTO) 1 % (0-1); EOSINOPHILS % (AUTO) 1 % (1-7); LYMPHOCYTES % (AUTO) 24 % (22-44); MEAN CORPUSCULAR HEMOGLOBIN 30.8 pg (27.0-34.8); MEAN PLATELET VOLUME 7.5 fL (7.4-10.4); MONOCYTES % (AUTO) 8 % (2-9); NEUTROPHILS % (AUTO) 67 % (42-75); PLATELET COUNT 758 x10^3/uL (130-400); RED BLOOD COUNT 2.51 x10^6/uL (3.82-5.3); RED CELL DISTRIBUTION WIDTH 14.8 % (9.6-15.2)
[2020-07-29 04:28] LABS: MD NO
[2020-07-29 04:32] LABS: ANION GAP 7 mmol/L (5-15); CALCIUM 7.9 mg/dL (8.5-10.1); CHLORIDE 104 mmol/L (98-107); CREATININE 0.74 mg/dL (0.55-1.02)
[2020-07-29] MEDS: LEVOTHYROXINE 150 MCG TABLET PO SCH (04:32)
[2020-07-29 04:33] LABS: VANCOMYCIN,TROUGH 12.8 mcg/mL (5.0-10.0)
[2020-07-29] MEDS: VANCOMYCIN PMX 1GM/200ML 200 ML IVPB SCH (07:09)
[2020-07-29 07:21] VITALS: BP 110/76
[2020-07-29] MEDS ORDERED: FAMOTIDINE 40 MG TABLET ONE ×2 (07:59→20:21)
[2020-07-29] MEDS: FAMOTIDINE 20 MG TABLET PO SCH ×2 (08:05→20:26)
[2020-07-29 13:21] VITALS: BP 104/74
[2020-07-29] MEDS: ENOXAPARIN 40 MG/0.4 ML SQ SCH (16:41)
[2020-07-29] MEDS: FLUCONAZOLE 50 MG TABLET PO SCH (17:30)
[2020-07-29] MEDS ORDERED: FLUCONAZOLE 100 MG TABLET ONE (17:48)
[2020-07-29] MEDS: VANCOMYCIN 1,200 MG in SODIUM CHLORIDE 0.9% 250 ML IV SCH (18:02)
[2020-07-29 18:47] VITALS: BP 105/70
[2020-07-30] MEDS: OXYcodone/APAP 10/325MG TABLET PO SCH ×4 (00:20→12:00)
[2020-07-30 01:26] VITALS: BP 116/72
[2020-07-30] MEDS: LORazepam 0.5MG TABLET PO PRN ×3 (04:03→22:35)
[2020-07-30 04:05] LABS: BASOPHILS % (AUTO) 1 % (0-1); EOSINOPHILS % (AUTO) 1 % (1-7); LYMPHOCYTES % (AUTO) 31 % (22-44); MEAN CORPUSCULAR HEMOGLOBIN 31.3 pg (27.0-34.8); MEAN CORPUSCULAR HGB CONC 34.2 g/dL (32.4-35.8); MEAN PLATELET VOLUME 7.1 fL (7.4-10.4); MONOCYTES % (AUTO) 8 % (2-9); NEUTROPHILS % (AUTO) 59 % (42-75); PLATELET COUNT 802 x10^3/uL (130-400); RED BLOOD COUNT 2.52 x10^6/uL (3.82-5.3); RED CELL DISTRIBUTION WIDTH 14.6 % (9.6-15.2)
[2020-07-30 04:08] LABS: MD NO
[2020-07-30 04:16] LABS: ANION GAP 7 mmol/L (5-15); CALCIUM 8.1 mg/dL (8.5-10.1); CHLORIDE 106 mmol/L (98-107); CREATININE 0.63 mg/dL (0.55-1.02)
[2020-07-30] MEDS: VANCOMYCIN 1,200 MG in SODIUM CHLORIDE 0.9% 250 ML IV SCH ×2 (05:00→17:29)
[2020-07-30] MEDS: LEVOTHYROXINE 150 MCG TABLET PO SCH (05:00)
[2020-07-30 06:30] VITALS: BP 123/78
[2020-07-30] MEDS ORDERED: FLUCONAZOLE 100 MG TABLET ONE (08:26)
[2020-07-30] MEDS ORDERED: FAMOTIDINE 40 MG TABLET ONE ×2 (08:27→22:11)
[2020-07-30] MEDS: FAMOTIDINE 20 MG TABLET PO SCH ×2 (08:32→21:00)
[2020-07-30] MEDS: FLUCONAZOLE 50 MG TABLET PO SCH (08:32)
[2020-07-30] MEDS ORDERED: MIDAZOLAM 1 MG/ML, 2ML ONE (12:26)
[2020-07-30] MEDS ORDERED: FENTANYL PF 100 MCG/2ML ONE ×2 (12:27→14:38)
[2020-07-30] MEDS ORDERED: MEPERIDINE/PF 25MG/0.5ML IVPush PRN (12:30)
[2020-07-30] MEDS ORDERED: FENTANYL PF 100 MCG/2ML IV PRN (12:30)
[2020-07-30] MEDS ORDERED: HYDROcodone/APAP 7.5-325MG/15ML UDC PO PRN (12:30)
[2020-07-30] MEDS ORDERED: HYDROmorphone 1 MG/ML, 1ML INJ IVPush PRN (12:30)
[2020-07-30] MEDS ORDERED: OXYcodone 5 MG/5 ML ORAL.SOL UDC PO PRN (12:30)
[2020-07-30] MEDS ORDERED: PROMETHAZINE 25 MG/ML, 1ML IVPush PRN (12:30)
[2020-07-30] MEDS ORDERED: ONDANSETRON 2MG/ML, 2ML IVPush PRN (12:30)
[2020-07-30] MEDS ORDERED: CHLORHEXIDINE 15 ML UDC ONE (12:32)
[2020-07-30] MEDS ORDERED: LIDOCAINE JELLY 2%, 30GM ONE (12:50)
[2020-07-30] MEDS ORDERED: EPINEPHRINE 1 MG/ML, 1ML ONE (12:50)
[2020-07-30] MEDS ORDERED: BUPIVACAINE/PF 0.25% ONE (12:50)
[2020-07-30] MEDS ORDERED: SILVER SULF. CRM 1% , 25GM ONE (12:50)
[2020-07-30] MEDS ORDERED: LORazepam 2 MG/ML, 1ML IVPush ONE (15:30)
[2020-07-30] MEDS: ENOXAPARIN 40 MG/0.4 ML SQ SCH (16:00)
[2020-07-30] MEDS ORDERED: ONDANSETRON 2MG/ML, 2ML ONE (16:41)
[2020-07-30] MEDS ORDERED: PROPOFOL 10 MG/ML, 20ML ONE (16:41)
[2020-07-30] MEDS ORDERED: DEXAMETHASONE 4 MG/ML, 1ML ONE (16:41)
[2020-07-30] MEDS: MORPHINE SULFATE 4 MG/ML, 1ML IVPush PRN ×2 (17:42→23:08)
[2020-07-30 20:26] VITALS: BP 113/78
[2020-07-31 00:23] VITALS: BP 100/75
[2020-07-31] MEDS: MORPHINE SULFATE 4 MG/ML, 1ML IVPush PRN ×3 (03:53→15:22)
[2020-07-31] MEDS: LORazepam 0.5MG TABLET PO PRN ×2 (05:10→11:10)
[2020-07-31] MEDS: LEVOTHYROXINE 150 MCG TABLET PO SCH (05:11)
[2020-07-31] MEDS: OXYcodone/APAP 10/325MG TABLET PO PRN ×2 (05:11→12:48)
[2020-07-31] MEDS: VANCOMYCIN 1,200 MG in SODIUM CHLORIDE 0.9% 250 ML IV SCH ×2 (06:13→18:25)
[2020-07-31 08:16] VITALS: BP 108/84
[2020-07-31] MEDS ORDERED: FAMOTIDINE 40 MG TABLET ONE ×2 (09:19→20:22)
[2020-07-31] MEDS: FAMOTIDINE 20 MG TABLET PO SCH ×2 (09:24→20:27)
[2020-07-31] MEDS: FLUCONAZOLE 50 MG TABLET PO SCH (09:24)
[2020-07-31] MEDS ORDERED: LORazepam 0.5MG TABLET PO ONE ×2 (12:00)
[2020-07-31 13:01] VITALS: BP 115/82
[2020-07-31] MEDS: ENOXAPARIN 40 MG/0.4 ML SQ SCH (15:22)
[2020-07-31] MEDS: LORazepam 1MG TABLET PO PRN (18:25)
[2020-07-31 18:50] VITALS: BP 108/67
[2020-08-01] MEDS: MORPHINE SULFATE 4 MG/ML, 1ML IVPush PRN ×5 (00:17→21:35)
[2020-08-01] MEDS: LORazepam 1MG TABLET PO PRN ×4 (00:27→23:32)
[2020-08-01 01:14] VITALS: BP 125/86
[2020-08-01] MEDS: OXYcodone/APAP 10/325MG TABLET PO PRN ×3 (01:43→18:31)
[2020-08-01] MEDS: LEVOTHYROXINE 150 MCG TABLET PO SCH (05:40)
[2020-08-01] MEDS: VANCOMYCIN 1,200 MG in SODIUM CHLORIDE 0.9% 250 ML IV SCH ×2 (05:57→17:31)
[2020-08-01 06:07] LABS: BASOPHILS % (AUTO) 0 % (0-1); EOSINOPHILS % (AUTO) 0 % (1-7); LYMPHOCYTES % (AUTO) 22 % (22-44); MEAN CORPUSCULAR HEMOGLOBIN 31.2 pg (27.0-34.8); MEAN CORPUSCULAR HGB CONC 33.9 g/dL (32.4-35.8); MEAN PLATELET VOLUME 7.3 fL (7.4-10.4); MONOCYTES % (AUTO) 7 % (2-9); NEUTROPHILS % (AUTO) 70 % (42-75); PLATELET COUNT 809 x10^3/uL (130-400); RED BLOOD COUNT 2.38 x10^6/uL (3.82-5.3); RED CELL DISTRIBUTION WIDTH 14.6 % (9.6-15.2)
[2020-08-01 06:18] LABS: ALBUMIN 1.6 g/dL (3.4-5.0); ANION GAP 6 mmol/L (5-15); CALCIUM 8.2 mg/dL (8.5-10.1); CHLORIDE 111 mmol/L (98-107)
[2020-08-01 06:23] LABS: ALANINE AMINOTRANSFERASE 20 U/L (12-78); ALKALINE PHOSPHATASE 99 U/L (45-117); BILIRUBIN,TOTAL 0.1 mg/dL (0.2-1.0); CREATININE 0.69 mg/dL (0.55-1.02); PREALBUMIN 12.6 mg/dL (20.0-40.0); TOTAL PROTEIN 6.2 g/dL (6.4-8.2)
[2020-08-01 06:44] VITALS: BP 126/84
[2020-08-01 06:44] LABS: MD SCAN
[2020-08-01] MEDS ORDERED: FAMOTIDINE 40 MG TABLET ONE (08:45)
[2020-08-01] MEDS: FLUCONAZOLE 50 MG TABLET PO SCH (08:51)
[2020-08-01] MEDS: FAMOTIDINE 20 MG TABLET PO SCH ×2 (08:54→21:19)
[2020-08-01 14:32] VITALS: BP 127/86
[2020-08-01] MEDS: ENOXAPARIN 40 MG/0.4 ML SQ SCH (16:16)
[2020-08-01 18:38] VITALS: BP 125/87
[2020-08-02 00:05] VITALS: BP 120/74
[2020-08-02] MEDS: MORPHINE SULFATE 4 MG/ML, 1ML IVPush PRN ×3 (01:31→18:40)
[2020-08-02] MEDS: OXYcodone/APAP 10/325MG TABLET PO PRN ×3 (02:15→21:16)
[2020-08-02] MEDS: LEVOTHYROXINE 150 MCG TABLET PO SCH (05:56)
[2020-08-02 06:08] LABS: BASOPHILS % (AUTO) 1 % (0-1); EOSINOPHILS % (AUTO) 1 % (1-7); LYMPHOCYTES % (AUTO) 26 % (22-44); MEAN CORPUSCULAR HEMOGLOBIN 30.8 pg (27.0-34.8); MEAN PLATELET VOLUME 7.2 fL (7.4-10.4); MONOCYTES % (AUTO) 9 % (2-9); NEUTROPHILS % (AUTO) 64 % (42-75); PLATELET COUNT 774 x10^3/uL (130-400); RED BLOOD COUNT 2.47 x10^6/uL (3.82-5.3); RED CELL DISTRIBUTION WIDTH 15.3 % (9.6-15.2)
[2020-08-02] MEDS: VANCOMYCIN 1,200 MG in SODIUM CHLORIDE 0.9% 250 ML IV SCH ×2 (06:09→16:36)
[2020-08-02 06:14] LABS: MD NO
[2020-08-02 06:17] LABS: ALBUMIN 1.8 g/dL (3.4-5.0); ANION GAP 6 mmol/L (5-15); CALCIUM 8.3 mg/dL (8.5-10.1); CHLORIDE 106 mmol/L (98-107)
[2020-08-02 06:21] LABS: ALANINE AMINOTRANSFERASE 15 U/L (12-78); ALKALINE PHOSPHATASE 96 U/L (45-117); BILIRUBIN,TOTAL 0.2 mg/dL (0.2-1.0); CREATININE 0.73 mg/dL (0.55-1.02); TOTAL PROTEIN 6.1 g/dL (6.4-8.2)
[2020-08-02 07:22] VITALS: BP 115/72
[2020-08-02] MEDS ORDERED: FAMOTIDINE 40 MG TABLET ONE ×2 (08:16→21:09)
[2020-08-02] MEDS: FLUCONAZOLE 50 MG TABLET PO SCH (08:19)
[2020-08-02] MEDS: LORazepam 1MG TABLET PO PRN ×2 (08:19→16:43)
[2020-08-02] MEDS: FAMOTIDINE 20 MG TABLET PO SCH ×2 (09:00→21:00)
[2020-08-02 12:10] VITALS: BP 99/68
[2020-08-02] MEDS: ENOXAPARIN 40 MG/0.4 ML SQ SCH (16:00)
[2020-08-02 19:25] VITALS: BP 105/68
[2020-08-03 02:10] VITALS: BP 105/70
[2020-08-03] MEDS: OXYcodone/APAP 10/325MG TABLET PO PRN ×5 (03:54→23:10)
[2020-08-03] MEDS: LEVOTHYROXINE 150 MCG TABLET PO SCH (05:59)
[2020-08-03 07:18] VITALS: BP 115/83
[2020-08-03] MEDS ORDERED: FAMOTIDINE 40 MG TABLET ONE ×2 (08:41→19:35)
[2020-08-03] MEDS: FAMOTIDINE 20 MG TABLET PO SCH ×2 (08:43→19:35)
[2020-08-03] MEDS: VANCOMYCIN 1,200 MG in SODIUM CHLORIDE 0.9% 250 ML IV SCH ×2 (08:43→19:34)
[2020-08-03] MEDS: LORazepam 1MG TABLET PO PRN ×2 (08:44→19:34)
[2020-08-03] MEDS: FLUCONAZOLE 50 MG TABLET PO SCH (08:44)
[2020-08-03 12:49] VITALS: BP 94/62
[2020-08-03] MEDS: ENOXAPARIN 40 MG/0.4 ML SQ SCH (14:14)
[2020-08-03] MEDS: MORPHINE SULFATE 4 MG/ML, 1ML IVPush PRN (15:36)
[2020-08-03 19:37] VITALS: BP 105/63
[2020-08-04 02:20] VITALS: BP 92/61
[2020-08-04] MEDS: OXYcodone/APAP 10/325MG TABLET PO PRN ×3 (02:53→20:15)
[2020-08-04 04:27] LABS: BASOPHILS % (AUTO) 1 % (0-1); EOSINOPHILS % (AUTO) 2 % (1-7); LYMPHOCYTES % (AUTO) 31 % (22-44); MEAN CORPUSCULAR HEMOGLOBIN 30.1 pg (27.0-34.8); MEAN CORPUSCULAR HGB CONC 33.2 g/dL (32.4-35.8); MEAN PLATELET VOLUME 7.2 fL (7.4-10.4); MONOCYTES % (AUTO) 8 % (2-9); NEUTROPHILS % (AUTO) 58 % (42-75); PLATELET COUNT 738 x10^3/uL (130-400); RED BLOOD COUNT 2.49 x10^6/uL (3.82-5.3); RED CELL DISTRIBUTION WIDTH 15.7 % (9.6-15.2)
[2020-08-04 04:29] LABS: MD NO
[2020-08-04] MEDS: LEVOTHYROXINE 150 MCG TABLET PO SCH (06:17)
[2020-08-04] MEDS: LORazepam 1MG TABLET PO PRN ×3 (06:17→20:15)
[2020-08-04 07:15] VITALS: BP 102/69
[2020-08-04] MEDS ORDERED: FAMOTIDINE 40 MG TABLET ONE ×2 (07:38→20:11)
[2020-08-04] MEDS: FAMOTIDINE 20 MG TABLET PO SCH ×2 (07:41→20:16)
[2020-08-04] MEDS: VANCOMYCIN 1,200 MG in SODIUM CHLORIDE 0.9% 250 ML IV SCH ×2 (07:41→20:14)
[2020-08-04] MEDS: FLUCONAZOLE 50 MG TABLET PO SCH (07:42)
[2020-08-04] MEDS: MORPHINE SULFATE 4 MG/ML, 1ML IVPush PRN ×2 (11:03→14:54)
[2020-08-04 13:34] VITALS: BP 97/64
[2020-08-04 18:36] VITALS: BP 103/68
[2020-08-04] MEDS: DIPHENHYDRAMINE 50 MG/ML, 1ML IVPush PRN (22:57)
[2020-08-05 03:37] VITALS: BP 114/73
[2020-08-05] MEDS: MORPHINE SULFATE 4 MG/ML, 1ML IVPush PRN ×2 (03:45→08:45)
[2020-08-05] MEDS: LORazepam 1MG TABLET PO PRN ×2 (03:52→21:06)
[2020-08-05] MEDS: LEVOTHYROXINE 150 MCG TABLET PO SCH (06:00)
[2020-08-05 07:58] VITALS: BP 107/74
[2020-08-05] MEDS: VANCOMYCIN 1,200 MG in SODIUM CHLORIDE 0.9% 250 ML IV SCH (08:45)
[2020-08-05] MEDS: FAMOTIDINE 20 MG TABLET PO SCH ×2 (09:00→21:00)
[2020-08-05] MEDS: FLUCONAZOLE 50 MG TABLET PO SCH (09:00)
[2020-08-05] MEDS ORDERED: FENTANYL PF 100 MCG/2ML IV PRN (09:30)
[2020-08-05] MEDS ORDERED: PROMETHAZINE 25 MG/ML, 1ML IVPush PRN (09:30)
[2020-08-05] MEDS ORDERED: hydrALAzine 20 MG/ML, 1ML IV PRN (09:30)
[2020-08-05] MEDS ORDERED: LABETALOL 5MG/ML, 20ML IV PRN (09:30)
[2020-08-05] MEDS ORDERED: HYDROmorphone 1 MG/ML, 1ML INJ IVPush PRN (09:30)
[2020-08-05] MEDS ORDERED: EPHEDRINE 50 MG/ML, 1ML IVPush PRN (09:30)
[2020-08-05] MEDS ORDERED: ONDANSETRON 2MG/ML, 2ML IVPush PRN (09:30)
[2020-08-05] MEDS ORDERED: OXYcodone 5 MG/5 ML ORAL.SOL UDC PO PRN (09:30)
[2020-08-05] MEDS ORDERED: ACETAMINOPHEN 325 MG TABLET PO PRN (09:30)
[2020-08-05] MEDS ORDERED: CHLORHEXIDINE 15 ML UDC ONE (11:00)
[2020-08-05] MEDS ORDERED: CHLORHEXIDINE 15 ML UDC MM ONE (11:00)
[2020-08-05] MEDS ORDERED: EPINEPHRINE 1 MG/ML, 1ML ONE (11:02)
[2020-08-05] MEDS ORDERED: BUPIVACAINE/PF 0.25% ONE (11:02)
[2020-08-05] MEDS ORDERED: FENTANYL PF 100 MCG/2ML ONE ×2 (11:06→11:28)
[2020-08-05] MEDS ORDERED: MIDAZOLAM 1 MG/ML, 2ML ONE (11:06)
[2020-08-05] MEDS ORDERED: DEXAMETHASONE 4 MG/ML, 5ML ONE (11:27)
[2020-08-05] MEDS ORDERED: KETOROLAC 30 MG/1 ML ONE (11:27)
[2020-08-05] MEDS ORDERED: PROPOFOL 10 MG/ML, 20ML ONE (11:30)
[2020-08-05] MEDS ORDERED: ONDANSETRON 2MG/ML, 2ML ONE (11:31)
[2020-08-05 13:15] VITALS: BP 109/64
[2020-08-05] MEDS: ENOXAPARIN 40 MG/0.4 ML SQ SCH (15:55)
[2020-08-05 20:16] VITALS: BP 101/67
[2020-08-05] MEDS ORDERED: FAMOTIDINE 40 MG TABLET ONE (21:02)
[2020-08-05] MEDS: OXYcodone/APAP 10/325MG TABLET PO PRN (21:07)
[2020-08-06] MEDS: VANCOMYCIN 1,200 MG in SODIUM CHLORIDE 0.9% 250 ML IV SCH ×2 (00:59→13:21)
[2020-08-06 01:55] VITALS: BP 109/67
[2020-08-06] MEDS: OXYcodone/APAP 10/325MG TABLET PO PRN ×4 (02:03→21:12)
[2020-08-06] MEDS: LORazepam 1MG TABLET PO PRN ×3 (04:12→21:12)
[2020-08-06] MEDS: LEVOTHYROXINE 150 MCG TABLET PO SCH (05:13)
[2020-08-06 05:31] LABS: BASOPHILS % (AUTO) 0 % (0-1); EOSINOPHILS % (AUTO) 0 % (1-7); LYMPHOCYTES % (AUTO) 15 % (22-44); MEAN CORPUSCULAR HEMOGLOBIN 30.2 pg (27.0-34.8); MEAN CORPUSCULAR HGB CONC 33.6 g/dL (32.4-35.8); MEAN PLATELET VOLUME 7.5 fL (7.4-10.4); MONOCYTES % (AUTO) 5 % (2-9); NEUTROPHILS % (AUTO) 79 % (42-75); PLATELET COUNT 686 x10^3/uL (130-400); RED CELL DISTRIBUTION WIDTH 15.2 % (9.6-15.2)
[2020-08-06 06:03] LABS: MD NO
[2020-08-06] MEDS ORDERED: FAMOTIDINE 40 MG TABLET ONE ×2 (07:33→20:35)
[2020-08-06] MEDS: FAMOTIDINE 20 MG TABLET PO SCH ×2 (07:36→20:42)
[2020-08-06] MEDS: FLUCONAZOLE 50 MG TABLET PO SCH (07:37)
[2020-08-06 10:53] VITALS: BP 103/72
[2020-08-06] MEDS: ENOXAPARIN 40 MG/0.4 ML SQ SCH (13:21)
[2020-08-06 15:28] VITALS: BP 107/71
[2020-08-06 18:42] VITALS: BP 108/72
[2020-08-07] MEDS: VANCOMYCIN 1,200 MG in SODIUM CHLORIDE 0.9% 250 ML IV SCH ×2 (00:59→13:06)
[2020-08-07] MEDS: OXYcodone/APAP 10/325MG TABLET PO PRN ×4 (01:14→21:08)
[2020-08-07 01:52] VITALS: BP 122/82
[2020-08-07] MEDS: LEVOTHYROXINE 150 MCG TABLET PO SCH (04:47)
[2020-08-07 05:27] LABS: CREATININE 0.69 mg/dL (0.55-1.02)
[2020-08-07] MEDS: LORazepam 1MG TABLET PO PRN ×3 (06:47→20:17)
[2020-08-07] MEDS ORDERED: FAMOTIDINE 40 MG TABLET ONE ×2 (08:21→20:08)
[2020-08-07] MEDS: MORPHINE SULFATE 4 MG/ML, 1ML IVPush PRN (08:26)
[2020-08-07] MEDS: VENLAFAXINE XR 37.5MG CAP.ER.24H PO SCH (08:27)
[2020-08-07] MEDS: FLUCONAZOLE 50 MG TABLET PO SCH (08:28)
[2020-08-07] MEDS: FAMOTIDINE 20 MG TABLET PO SCH ×2 (08:32→20:16)
[2020-08-07 13:06] VITALS: BP 130/90
[2020-08-07 13:07] VITALS: BP 127/78
[2020-08-07] MEDS ORDERED: FENTANYL PF 250 MCG/5ML ONE (14:59)
[2020-08-07] MEDS ORDERED: FENTANYL PF 100 MCG/2ML ONE ×2 (15:43→16:30)
[2020-08-07] MEDS ORDERED: MEPERIDINE/PF 25MG/0.5ML IVPush PRN (16:00)
[2020-08-07] MEDS ORDERED: HYDROmorphone 2 MG/ML, 1ML IVPush PRN (16:00)
[2020-08-07] MEDS ORDERED: hydrALAzine 20 MG/ML, 1ML IV PRN (16:00)
[2020-08-07] MEDS ORDERED: ALBUTEROL SULFATE 2.5 MG/3 ML NPPB PRN (16:00)
[2020-08-07] MEDS ORDERED: OXYcodone 5 MG/5 ML ORAL.SOL UDC PO PRN (16:00)
[2020-08-07] MEDS ORDERED: PROMETHAZINE 25 MG/ML, 1ML IV PRN (16:00)
[2020-08-07] MEDS ORDERED: ACETAMINOPHEN 325 MG TABLET PO PRN (16:00)
[2020-08-07] MEDS ORDERED: FENTANYL PF 100 MCG/2ML IV PRN (16:00)
[2020-08-07] MEDS ORDERED: LABETALOL 5MG/ML, 20ML IV PRN (16:00)
[2020-08-07] MEDS ORDERED: KETOROLAC 30 MG/1 ML IV PRN (16:00)
[2020-08-07] MEDS ORDERED: DIAZEPAM 5 MG/ML, 2ML IVPush PRN (16:00)
[2020-08-07] MEDS ORDERED: PROPOFOL 10 MG/ML, 20ML ONE (16:01)
[2020-08-07] MEDS ORDERED: NEOSTIGMINE 1 MG/ML, 10ML ONE (16:01)
[2020-08-07] MEDS ORDERED: SUCCINYLCHOLINE 20 MG/ML, 10ML ONE (16:01)
[2020-08-07] MEDS ORDERED: ONDANSETRON 2MG/ML, 2ML ONE (16:01)
[2020-08-07] MEDS ORDERED: CEFAZOLIN 1,000 MG ONE (16:01)
[2020-08-07] MEDS ORDERED: ROCURONIUM 10MG/ML,5ML ONE (16:01)
[2020-08-07] MEDS ORDERED: GLYCOPYRROLATE 0.2MG/1ML, 5ML ONE (16:01)
[2020-08-07] MEDS ORDERED: DEXAMETHASONE 4 MG/ML, 1ML ONE (16:01)
[2020-08-07] MEDS ORDERED: KETOROLAC 30 MG/1 ML ONE (16:30)
[2020-08-07] MEDS ORDERED: OXYcodone 5 MG/5 ML ORAL.SOL UDC ONE (16:30)
[2020-08-07] MEDS: ENOXAPARIN 40 MG/0.4 ML SQ SCH (17:42)
[2020-08-07 19:53] VITALS: BP 110/77
[2020-08-08] MEDS: VANCOMYCIN 1,200 MG in SODIUM CHLORIDE 0.9% 250 ML IV SCH ×2 (01:07→12:51)
[2020-08-08] MEDS: OXYcodone/APAP 10/325MG TABLET PO PRN ×5 (01:24→21:18)
[2020-08-08 04:06] VITALS: BP 106/70
[2020-08-08] MEDS: LORazepam 1MG TABLET PO PRN ×4 (04:11→22:32)
[2020-08-08] MEDS: LEVOTHYROXINE 150 MCG TABLET PO SCH (05:13)
[2020-08-08 05:29] LABS: BASOPHILS % (AUTO) 0 % (0-1); EOSINOPHILS % (AUTO) 0 % (1-7); LYMPHOCYTES % (AUTO) 19 % (22-44); MEAN CORPUSCULAR HEMOGLOBIN 29.9 pg (27.0-34.8); MEAN CORPUSCULAR HGB CONC 33.4 g/dL (32.4-35.8); MEAN PLATELET VOLUME 7.3 fL (7.4-10.4); MONOCYTES % (AUTO) 5 % (2-9); NEUTROPHILS % (AUTO) 75 % (42-75); PLATELET COUNT 642 x10^3/uL (130-400); RED BLOOD COUNT 2.39 x10^6/uL (3.82-5.3); RED CELL DISTRIBUTION WIDTH 15.8 % (9.6-15.2)
[2020-08-08 05:35] LABS: MD NO
[2020-08-08 08:30] VITALS: BP 109/75
[2020-08-08] MEDS: FAMOTIDINE 20 MG TABLET PO SCH ×2 (09:00→21:00)
[2020-08-08] MEDS ORDERED: FAMOTIDINE 40 MG TABLET ONE ×2 (09:20→21:06)
[2020-08-08] MEDS: VENLAFAXINE XR 37.5MG CAP.ER.24H PO SCH (09:23)
[2020-08-08] MEDS: FLUCONAZOLE 50 MG TABLET PO SCH (09:23)
[2020-08-08] MEDS: ENOXAPARIN 40 MG/0.4 ML SQ SCH (12:20)
[2020-08-08 13:32] VITALS: BP 105/72
[2020-08-08 19:27] VITALS: BP 109/67
[2020-08-09] VITALS (11 sets, daily range): BP systolic 112–140; BP diastolic 74–93
[2020-08-09] MEDS: OXYcodone/APAP 10/325MG TABLET PO PRN ×5 (02:40→23:27)
[2020-08-09] MEDS: LEVOTHYROXINE 150 MCG TABLET PO SCH (05:04)
[2020-08-09] MEDS: LORazepam 1MG TABLET PO PRN (05:04)
[2020-08-09 05:35] LABS: BASOPHILS % (AUTO) 1 % (0-1); EOSINOPHILS % (AUTO) 1 % (1-7); LYMPHOCYTES % (AUTO) 19 % (22-44); MEAN CORPUSCULAR HEMOGLOBIN 29.9 pg (27.0-34.8); MEAN CORPUSCULAR HGB CONC 33.3 g/dL (32.4-35.8); MEAN PLATELET VOLUME 7.4 fL (7.4-10.4); MONOCYTES % (AUTO) 7 % (2-9); NEUTROPHILS % (AUTO) 73 % (42-75); PLATELET COUNT 627 x10^3/uL (130-400); RED BLOOD COUNT 2.29 x10^6/uL (3.82-5.3); RED CELL DISTRIBUTION WIDTH 16.3 % (9.6-15.2)
[2020-08-09 05:40] LABS: MD NO
[2020-08-09 05:47] LABS: ALBUMIN 1.8 g/dL (3.4-5.0); CALCIUM 8.4 mg/dL (8.5-10.1); CHLORIDE 108 mmol/L (98-107)
[2020-08-09 05:53] LABS: ALANINE AMINOTRANSFERASE 17 U/L (12-78); ALKALINE PHOSPHATASE 98 U/L (45-117); ANION GAP 7 mmol/L (5-15); BILIRUBIN,TOTAL 0.3 mg/dL (0.2-1.0); CREATININE 0.78 mg/dL (0.55-1.02)
[2020-08-09] MEDS: VANCOMYCIN 1,400 MG in SODIUM CHLORIDE 0.9% 250 ML IV SCH ×2 (06:25→23:27)
[2020-08-09] MEDS: MORPHINE SULFATE 4 MG/ML, 1ML IVPush PRN (07:02)
[2020-08-09] MEDS: MAGNESIUM HYDROXIDE 8%, 30ML UDC PO PRN (07:51)
[2020-08-09] MEDS ORDERED: DIPHENHYDRAMINE 50 MG CAPSULE PO ONE (08:00)
[2020-08-09] MEDS ORDERED: ACETAMINOPHEN 325 MG TABLET PO ONE (08:00)
[2020-08-09] MEDS ORDERED: POLYETHYLENE GLYCOL 17 GM PACKET NG PRN (08:00)
[2020-08-09] MEDS ORDERED: DIPHENHYDRAMINE 50 MG CAPSULE PO PRN (08:00)
[2020-08-09] MEDS ORDERED: FAMOTIDINE 40 MG TABLET ONE ×2 (08:29→19:21)
[2020-08-09] MEDS: VENLAFAXINE XR 37.5MG CAP.ER.24H PO SCH (08:33)
[2020-08-09] MEDS: FLUCONAZOLE 50 MG TABLET PO SCH (08:33)
[2020-08-09] MEDS: FAMOTIDINE 20 MG TABLET PO SCH ×2 (08:34→19:31)
[2020-08-09] MEDS: ENOXAPARIN 40 MG/0.4 ML SQ SCH (12:30)
[2020-08-10 03:04] VITALS: BP 119/77
[2020-08-10] MEDS: OXYcodone/APAP 10/325MG TABLET PO PRN ×5 (03:04→21:27)
[2020-08-10] MEDS: LEVOTHYROXINE 150 MCG TABLET PO SCH (04:48)
[2020-08-10 05:43] LABS: ANION GAP 6 mmol/L (5-15); CALCIUM 8.5 mg/dL (8.5-10.1); CHLORIDE 104 mmol/L (98-107)
[2020-08-10 05:44] LABS: CREATININE 0.73 mg/dL (0.55-1.02)
[2020-08-10 05:47] LABS: BASOPHILS % (AUTO) 1 % (0-1); EOSINOPHILS % (AUTO) 1 % (1-7); LYMPHOCYTES % (AUTO) 21 % (22-44); MEAN CORPUSCULAR HEMOGLOBIN 29.6 pg (27.0-34.8); MEAN CORPUSCULAR HGB CONC 33.6 g/dL (32.4-35.8); MEAN PLATELET VOLUME 7.5 fL (7.4-10.4); MONOCYTES % (AUTO) 7 % (2-9); NEUTROPHILS % (AUTO) 70 % (42-75); PLATELET COUNT 601 x10^3/uL (130-400); RED CELL DISTRIBUTION WIDTH 16.6 % (9.6-15.2)
[2020-08-10 05:53] LABS: MD NO
[2020-08-10 08:19] VITALS: BP 122/85
[2020-08-10] MEDS ORDERED: FAMOTIDINE 40 MG TABLET ONE (08:33)
[2020-08-10] MEDS: FAMOTIDINE 20 MG TABLET PO SCH ×2 (09:00→21:27)
[2020-08-10] MEDS: VENLAFAXINE XR 37.5MG CAP.ER.24H PO SCH (09:00)
[2020-08-10] MEDS: MORPHINE SULFATE 4 MG/ML, 1ML IVPush PRN ×2 (12:08→22:25)
[2020-08-10] MEDS: ENOXAPARIN 40 MG/0.4 ML SQ SCH (12:10)
[2020-08-10 13:37] VITALS: BP 113/76
[2020-08-10 21:28] VITALS: BP 96/66
[2020-08-10] MEDS: DIPHENHYDRAMINE 50 MG/ML, 1ML IVPush PRN (23:55)
[2020-08-11 00:02] VITALS: BP 110/78
[2020-08-11] MEDS: OXYcodone/APAP 10/325MG TABLET PO PRN ×4 (03:23→21:42)
[2020-08-11] MEDS: LEVOTHYROXINE 150 MCG TABLET PO SCH (05:01)
[2020-08-11] MEDS: MORPHINE SULFATE 4 MG/ML, 1ML IVPush PRN ×4 (05:01→18:01)
[2020-08-11] MEDS: VENLAFAXINE XR 37.5MG CAP.ER.24H PO SCH (08:43)
[2020-08-11] MEDS: FAMOTIDINE 20 MG TABLET PO SCH ×2 (08:43→21:42)
[2020-08-11 09:18] VITALS: BP 93/62
[2020-08-11] MEDS: ENOXAPARIN 40 MG/0.4 ML SQ SCH (13:48)
[2020-08-11 14:03] VITALS: BP 121/79
[2020-08-11 18:35] VITALS: BP 96/62
[2020-08-12] MEDS: MORPHINE SULFATE 4 MG/ML, 1ML IVPush PRN ×3 (01:09→20:17)
[2020-08-12 02:00] VITALS: BP 92/63
[2020-08-12] MEDS: KETOROLAC 30 MG/1 ML IVPush PRN ×2 (02:44→13:43)
[2020-08-12] MEDS: OXYcodone/APAP 10/325MG TABLET PO PRN ×4 (04:35→22:14)
[2020-08-12] MEDS: LEVOTHYROXINE 150 MCG TABLET PO SCH (06:26)
[2020-08-12 07:37] VITALS: BP 91/62
[2020-08-12] MEDS: FAMOTIDINE 20 MG TABLET PO SCH ×2 (09:07→20:17)
[2020-08-12] MEDS: VENLAFAXINE XR 37.5MG CAP.ER.24H PO SCH (09:07)
[2020-08-12] MEDS: ENOXAPARIN 40 MG/0.4 ML SQ SCH (09:16)
[2020-08-12] MEDS: MAGNESIUM HYDROXIDE 8%, 30ML UDC PO PRN (09:31)
[2020-08-12] MEDS: DIPHENHYDRAMINE 50 MG/ML, 1ML IVPush PRN (13:43)
[2020-08-12 14:02] VITALS: BP 133/86
[2020-08-12] MEDS ORDERED: LACTATED RINGERS 1,000 ML IVBOLUS ONE (15:00)
[2020-08-12] MEDS: MAGNESIUM HYDROXIDE 8%, 30ML UDC PO SCH ×3 (15:03→20:16)
[2020-08-12 19:49] VITALS: BP 106/75
[2020-08-12] MEDS ORDERED: MAGNESIUM HYDROXIDE 8%, 30ML UDC PO PRN (21:00)
[2020-08-13] MEDS: LACTATED RINGERS 1,000 ML IV SCH ×2 (00:24→12:29)
[2020-08-13] MEDS: KETOROLAC 30 MG/1 ML IVPush PRN (00:30)
[2020-08-13 01:09] VITALS: BP 111/68
[2020-08-13] MEDS: LEVOTHYROXINE 150 MCG TABLET PO SCH (05:07)
[2020-08-13 05:36] LABS: BASOPHILS % (AUTO) 1 % (0-1); EOSINOPHILS % (AUTO) 2 % (1-7); LYMPHOCYTES % (AUTO) 26 % (22-44); MEAN CORPUSCULAR HEMOGLOBIN 29.3 pg (27.0-34.8); MEAN CORPUSCULAR HGB CONC 33.2 g/dL (32.4-35.8); MEAN PLATELET VOLUME 7.4 fL (7.4-10.4); MONOCYTES % (AUTO) 8 % (2-9); NEUTROPHILS % (AUTO) 64 % (42-75); PLATELET COUNT 530 x10^3/uL (130-400); RED BLOOD COUNT 3.15 x10^6/uL (3.82-5.3)
[2020-08-13 05:38] LABS: ANION GAP 4 mmol/L (5-15); CALCIUM 8.6 mg/dL (8.5-10.1); CHLORIDE 104 mmol/L (98-107)
[2020-08-13 05:39] LABS: CREATININE 0.85 mg/dL (0.55-1.02)
[2020-08-13 05:50] LABS: MD NO
[2020-08-13] MEDS: MAGNESIUM HYDROXIDE 8%, 30ML UDC PO SCH ×3 (08:00→21:00)
[2020-08-13] MEDS: OXYcodone/APAP 10/325MG TABLET PO PRN ×3 (08:00→20:37)
[2020-08-13] MEDS: VENLAFAXINE XR 37.5MG CAP.ER.24H PO SCH (08:00)
[2020-08-13] MEDS: FAMOTIDINE 20 MG TABLET PO SCH ×2 (08:00→21:09)
[2020-08-13] MEDS: ENOXAPARIN 40 MG/0.4 ML SQ SCH (08:01)
[2020-08-13 09:02] VITALS: BP 105/70
[2020-08-13] MEDS: MORPHINE SULFATE 4 MG/ML, 1ML IVPush PRN ×3 (10:59→21:45)
[2020-08-13] MEDS ORDERED: FENTANYL PF 250 MCG/5ML ONE (12:41)
[2020-08-13] MEDS ORDERED: MIDAZOLAM 1 MG/ML, 2ML ONE (12:41)
[2020-08-13] MEDS ORDERED: GLYCOPYRROLATE 0.2MG/1ML, 5ML ONE (12:42)
[2020-08-13] MEDS ORDERED: ONDANSETRON 2MG/ML, 2ML ONE (12:42)
[2020-08-13] MEDS ORDERED: ROCURONIUM 10MG/ML,5ML ONE (12:42)
[2020-08-13] MEDS ORDERED: NEOSTIGMINE 1 MG/ML, 10ML ONE (12:42)
[2020-08-13] MEDS ORDERED: PROPOFOL 10 MG/ML, 20ML ONE (12:42)
[2020-08-13] MEDS ORDERED: CEFAZOLIN 1,000 MG ONE (12:42)
[2020-08-13] MEDS ORDERED: CHLORHEXIDINE 15 ML UDC ONE (12:47)
[2020-08-13] MEDS ORDERED: BUPIVACAINE/PF 0.25% ONE (13:26)
[2020-08-13] MEDS ORDERED: LIDOCAINE JELLY 2%, 30GM ONE (13:26)
[2020-08-13] MEDS ORDERED: SILVER SULF. CRM 1% , 25GM ONE (13:26)
[2020-08-13] MEDS ORDERED: EPINEPHRINE 1 MG/ML, 1ML ONE (13:27)
[2020-08-13] MEDS ORDERED: FENTANYL PF 100 MCG/2ML IV PRN (13:30)
[2020-08-13] MEDS ORDERED: ACETAMINOPHEN 325 MG TABLET PO PRN (13:30)
[2020-08-13] MEDS ORDERED: HYDROmorphone 1 MG/ML, 1ML INJ IVPush PRN (13:30)
[2020-08-13] MEDS ORDERED: HALOPERIDOL 5 MG/ML IV PRN (13:30)
[2020-08-13] MEDS ORDERED: PROMETHAZINE 25 MG/ML, 1ML IVPush PRN (13:30)
[2020-08-13] MEDS ORDERED: OXYcodone 5 MG/5 ML ORAL.SOL UDC PO PRN (13:30)
[2020-08-13] MEDS ORDERED: LABETALOL 5MG/ML, 20ML IV PRN (13:30)
[2020-08-13] MEDS ORDERED: morphine SULFATE 10 MG/ML, 1ML IVPush PRN (13:30)
[2020-08-13] MEDS ORDERED: MEPERIDINE/PF 25MG/0.5ML IVPush PRN (13:30)
[2020-08-13] MEDS ORDERED: hydrALAzine 20 MG/ML, 1ML IV PRN (13:30)
[2020-08-13] MEDS ORDERED: DEXAMETHASONE 4 MG/ML, 1ML ONE (13:39)
[2020-08-13] MEDS ORDERED: VANCOMYCIN PER PHARMACY MC PRN (15:00)
[2020-08-13 15:50] VITALS: BP 107/70
[2020-08-13] MEDS ORDERED: PHARMACOKINETIC MONITORING MC PRN (16:00)
[2020-08-13] MEDS ORDERED: VANCOMYCIN 1,800 MG in SODIUM CHLORIDE 0.9% 250 ML IV ONE (16:00)
[2020-08-13] MEDS ORDERED: PHARMACOKINETIC CONSULTATION MC ONE (16:00)
[2020-08-13 18:30] VITALS: BP 107/71
[2020-08-14 00:16] VITALS: BP 113/77
[2020-08-14] MEDS: OXYcodone/APAP 10/325MG TABLET PO PRN ×4 (01:37→21:29)
[2020-08-14] MEDS: LEVOTHYROXINE 150 MCG TABLET PO SCH (05:43)
[2020-08-14] MEDS: LACTATED RINGERS 1,000 ML IV SCH ×2 (05:43→22:55)
[2020-08-14] MEDS: MORPHINE SULFATE 4 MG/ML, 1ML IVPush PRN ×4 (05:56→22:42)
[2020-08-14 08:42] VITALS: BP 113/78
[2020-08-14] MEDS: ENOXAPARIN 40 MG/0.4 ML SQ SCH (09:00)
[2020-08-14] MEDS: MAGNESIUM HYDROXIDE 8%, 30ML UDC PO SCH ×3 (09:13→21:01)
[2020-08-14] MEDS: FAMOTIDINE 20 MG TABLET PO SCH ×2 (09:14→21:01)
[2020-08-14] MEDS: VENLAFAXINE XR 37.5MG CAP.ER.24H PO SCH (09:14)
[2020-08-14] MEDS: VANCOMYCIN 1,400 MG in SODIUM CHLORIDE 0.9% 250 ML IV SCH (10:50)
[2020-08-14 12:40] VITALS: BP 108/72
[2020-08-14 18:47] VITALS: BP 109/65
[2020-08-15] MEDS: KETOROLAC 30 MG/1 ML IVPush PRN ×3 (00:32→20:13)
[2020-08-15 00:54] VITALS: BP 116/62
[2020-08-15] MEDS: VANCOMYCIN 1,400 MG in SODIUM CHLORIDE 0.9% 250 ML IV SCH ×2 (04:44→23:19)
[2020-08-15] MEDS: LEVOTHYROXINE 150 MCG TABLET PO SCH (04:44)
[2020-08-15] MEDS: OXYcodone/APAP 10/325MG TABLET PO PRN ×3 (05:01→20:12)
[2020-08-15] MEDS: ENOXAPARIN 40 MG/0.4 ML SQ SCH (09:00)
[2020-08-15] MEDS: MAGNESIUM HYDROXIDE 8%, 30ML UDC PO SCH ×3 (09:33→21:00)
[2020-08-15] MEDS: VENLAFAXINE 75 MG CAP ER PO SCH (09:33)
[2020-08-15] MEDS: FAMOTIDINE 20 MG TABLET PO SCH ×2 (09:33→21:00)
[2020-08-15 09:38] VITALS: BP 126/84
[2020-08-15] MEDS: MORPHINE SULFATE 4 MG/ML, 1ML IVPush PRN ×3 (12:51→21:59)
[2020-08-15 13:42] VITALS: BP 119/85
[2020-08-15 18:35] VITALS: BP 118/75
[2020-08-16] MEDS: OXYcodone/APAP 10/325MG TABLET PO PRN ×4 (01:00→19:38)
[2020-08-16] MEDS: MAGNESIUM HYDROXIDE 8%, 30ML UDC PO SCH ×5 (01:00→21:00)
[2020-08-16 01:28] VITALS: BP 114/76
[2020-08-16] MEDS: KETOROLAC 30 MG/1 ML IVPush PRN ×2 (03:59→12:21)
[2020-08-16] MEDS: MORPHINE SULFATE 4 MG/ML, 1ML IVPush PRN ×3 (04:44→23:03)
[2020-08-16] MEDS: LEVOTHYROXINE 150 MCG TABLET PO SCH (04:45)
[2020-08-16 06:45] LABS: BASOPHILS % (AUTO) 0 % (0-1); EOSINOPHILS % (AUTO) 1 % (1-7); LYMPHOCYTES % (AUTO) 22 % (22-44); MEAN CORPUSCULAR HEMOGLOBIN 29.1 pg (27.0-34.8); MEAN CORPUSCULAR HGB CONC 32.8 g/dL (32.4-35.8); MEAN PLATELET VOLUME 7.4 fL (7.4-10.4); MONOCYTES % (AUTO) 8 % (2-9); NEUTROPHILS % (AUTO) 69 % (42-75); PLATELET COUNT 548 x10^3/uL (130-400); RED BLOOD COUNT 2.98 x10^6/uL (3.82-5.3); RED CELL DISTRIBUTION WIDTH 16.2 % (9.6-15.2)
[2020-08-16 06:50] LABS: MD NO
[2020-08-16 06:57] LABS: CALCIUM 8.8 mg/dL (8.5-10.1); CHLORIDE 107 mmol/L (98-107)
[2020-08-16 07:02] LABS: ALANINE AMINOTRANSFERASE 10 U/L (12-78); ALKALINE PHOSPHATASE 92 U/L (45-117); ANION GAP 3 mmol/L (5-15); BILIRUBIN,TOTAL 0.2 mg/dL (0.2-1.0); CREATININE 0.73 mg/dL (0.55-1.02); TOTAL PROTEIN 6.2 g/dL (6.4-8.2)
[2020-08-16 07:11] VITALS: BP 126/86
[2020-08-16] MEDS: VENLAFAXINE 75 MG CAP ER PO SCH (07:43)
[2020-08-16] MEDS: FAMOTIDINE 20 MG TABLET PO SCH ×2 (07:43→19:35)
[2020-08-16] MEDS: ENOXAPARIN 40 MG/0.4 ML SQ SCH (07:43)
[2020-08-16 13:10] VITALS: BP 125/84
[2020-08-16] MEDS ORDERED: LORazepam 2 MG/ML, 1ML ONE (13:38)
[2020-08-16] MEDS ORDERED: LORazepam 2 MG/ML, 1ML IVPush ONE (14:00)
[2020-08-16] MEDS: VANCOMYCIN 1,400 MG in SODIUM CHLORIDE 0.9% 250 ML IV SCH (16:49)
[2020-08-16 18:38] VITALS: BP 124/78
[2020-08-17] MEDS: OXYcodone/APAP 10/325MG TABLET PO PRN ×4 (02:17→20:38)
[2020-08-17 02:21] VITALS: BP 112/75
[2020-08-17] MEDS: LEVOTHYROXINE 150 MCG TABLET PO SCH (04:55)
[2020-08-17] MEDS: MORPHINE SULFATE 4 MG/ML, 1ML IVPush PRN ×3 (05:02→18:24)
[2020-08-17 05:15] LABS: BASOPHILS % (AUTO) 1 % (0-1); EOSINOPHILS % (AUTO) 1 % (1-7); LYMPHOCYTES % (AUTO) 22 % (22-44); MEAN CORPUSCULAR HEMOGLOBIN 28.6 pg (27.0-34.8); MEAN CORPUSCULAR HGB CONC 32.6 g/dL (32.4-35.8); MEAN PLATELET VOLUME 7.5 fL (7.4-10.4); MONOCYTES % (AUTO) 8 % (2-9); NEUTROPHILS % (AUTO) 69 % (42-75); PLATELET COUNT 575 x10^3/uL (130-400); RED BLOOD COUNT 3.21 x10^6/uL (3.82-5.3); RED CELL DISTRIBUTION WIDTH 16.4 % (9.6-15.2)
[2020-08-17 05:17] LABS: MD NO
[2020-08-17] MEDS: MAGNESIUM HYDROXIDE 8%, 30ML UDC PO SCH ×3 (07:29→20:38)
[2020-08-17] MEDS: VENLAFAXINE 75 MG CAP ER PO SCH (07:30)
[2020-08-17] MEDS: FAMOTIDINE 20 MG TABLET PO SCH ×2 (07:30→20:38)
[2020-08-17 08:58] VITALS: BP 129/80
[2020-08-17] MEDS: ENOXAPARIN 40 MG/0.4 ML SQ SCH (10:42)
[2020-08-17] MEDS: VANCOMYCIN 1,400 MG in SODIUM CHLORIDE 0.9% 250 ML IV SCH (10:42)
[2020-08-17 14:08] VITALS: BP 117/68
[2020-08-17 20:00] VITALS: BP 111/75
[2020-08-18 00:11] VITALS: BP 105/71
[2020-08-18] MEDS: MORPHINE SULFATE 4 MG/ML, 1ML IVPush PRN ×7 (00:11→23:53)
[2020-08-18] MEDS: VANCOMYCIN 1,400 MG in SODIUM CHLORIDE 0.9% 250 ML IV SCH ×2 (05:00→23:33)
[2020-08-18] MEDS: LEVOTHYROXINE 150 MCG TABLET PO SCH (05:01)
[2020-08-18 06:52] VITALS: BP 115/79
[2020-08-18] MEDS: VENLAFAXINE 75 MG CAP ER PO SCH (09:49)
[2020-08-18] MEDS: MAGNESIUM HYDROXIDE 8%, 30ML UDC PO SCH ×3 (09:49→20:22)
[2020-08-18] MEDS: FAMOTIDINE 20 MG TABLET PO SCH ×2 (09:49→20:40)
[2020-08-18] MEDS: ENOXAPARIN 40 MG/0.4 ML SQ SCH (11:15)
[2020-08-18 13:23] VITALS: BP 94/67
[2020-08-18] MEDS ORDERED: morphine SULFATE/PF 1 MG/ML, 10ML IV PRN (15:30)
[2020-08-18] MEDS ORDERED: LORazepam 1MG TABLET PO PRN (15:30)
[2020-08-18 19:57] VITALS: BP 112/76
[2020-08-19 02:35] VITALS: BP 118/63
[2020-08-19] MEDS: MORPHINE SULFATE 4 MG/ML, 1ML IVPush PRN ×4 (02:57→20:55)
[2020-08-19] MEDS: LEVOTHYROXINE 150 MCG TABLET PO SCH (06:04)
[2020-08-19 07:46] VITALS: BP 104/68
[2020-08-19] MEDS: FAMOTIDINE 20 MG TABLET PO SCH ×2 (08:51→20:37)
[2020-08-19] MEDS: VENLAFAXINE 75 MG CAP ER PO SCH (08:51)
[2020-08-19] MEDS: OXYcodone/APAP 10/325MG TABLET PO PRN ×2 (08:51→13:07)
[2020-08-19] MEDS: MAGNESIUM HYDROXIDE 8%, 30ML UDC PO SCH ×3 (09:00→20:49)
[2020-08-19] MEDS: ENOXAPARIN 40 MG/0.4 ML SQ SCH (11:34)
[2020-08-19] MEDS ORDERED: LORazepam 2 MG/ML, 1ML ONE (13:27)
[2020-08-19] MEDS ORDERED: LORazepam 2 MG/ML, 1ML IVPush ONE (13:30)
[2020-08-19] MEDS ORDERED: LIDOCAINE 1%, 2ML INFIL ONE (14:00)
[2020-08-19 16:32] VITALS: BP 104/65
[2020-08-19] MEDS: VANCOMYCIN 1,400 MG in SODIUM CHLORIDE 0.9% 250 ML IV SCH (16:39)
[2020-08-19 19:17] VITALS: BP 98/65
[2020-08-20] MEDS: MORPHINE SULFATE 4 MG/ML, 1ML IVPush PRN ×4 (02:32→20:31)
[2020-08-20 02:40] VITALS: BP 102/67
[2020-08-20] MEDS: OXYcodone/APAP 10/325MG TABLET PO PRN ×2 (04:14→08:25)
[2020-08-20] MEDS: LEVOTHYROXINE 150 MCG TABLET PO SCH (04:15)
[2020-08-20 04:55] LABS: CREATININE 0.84 mg/dL (0.55-1.02)
[2020-08-20 07:13] VITALS: BP 96/67
[2020-08-20] MEDS: MAGNESIUM HYDROXIDE 8%, 30ML UDC PO SCH ×3 (08:20→20:30)
[2020-08-20] MEDS: VENLAFAXINE 75 MG CAP ER PO SCH (08:21)
[2020-08-20] MEDS: FAMOTIDINE 20 MG TABLET PO SCH ×2 (08:21→20:31)
[2020-08-20] MEDS: VANCOMYCIN 1,400 MG in SODIUM CHLORIDE 0.9% 250 ML IV SCH (11:43)
[2020-08-20] MEDS: ENOXAPARIN 40 MG/0.4 ML SQ SCH (11:43)
[2020-08-20 12:45] VITALS: BP 105/72
[2020-08-20 19:16] VITALS: BP 103/69
[2020-08-21 00:38] VITALS: BP 113/76
[2020-08-21] MEDS: MORPHINE SULFATE 4 MG/ML, 1ML IVPush PRN ×2 (01:13→09:49)
[2020-08-21] MEDS: OXYcodone/APAP 10/325MG TABLET PO PRN ×3 (03:04→23:19)
[2020-08-21] MEDS: LEVOTHYROXINE 150 MCG TABLET PO SCH (05:24)
[2020-08-21] MEDS: VANCOMYCIN 1,400 MG in SODIUM CHLORIDE 0.9% 250 ML IV SCH ×2 (05:24→23:14)
[2020-08-21 07:13] VITALS: BP 107/51
[2020-08-21] MEDS: FAMOTIDINE 20 MG TABLET PO SCH ×2 (09:37→21:02)
[2020-08-21] MEDS: MAGNESIUM HYDROXIDE 8%, 30ML UDC PO SCH ×3 (09:37→21:02)
[2020-08-21] MEDS: VENLAFAXINE 75 MG CAP ER PO SCH (09:37)
[2020-08-21] MEDS: ENOXAPARIN 40 MG/0.4 ML SQ SCH (09:38)
[2020-08-21] MEDS ORDERED: CATHFLO-ALTEPLASE 2 MG/2 ML CATHFLUSH ONE (10:30)
[2020-08-21] MEDS ORDERED: LORazepam 2 MG/ML, 1ML IV PRN ×2 (12:00→20:00)
[2020-08-21] MEDS ORDERED: morphine SULFATE 10 MG/ML, 1ML ONE (12:28)
[2020-08-21] MEDS ORDERED: morphine SULFATE 10 MG/ML, 1ML IV PRN (12:45)
[2020-08-21 13:55] VITALS: BP 101/62
[2020-08-21] MEDS ORDERED: KETOROLAC 30 MG/1 ML IVPush ONE (20:00)
[2020-08-21 20:05] VITALS: BP 109/77
[2020-08-22 03:28] VITALS: BP 110/71
[2020-08-22] MEDS: LEVOTHYROXINE 150 MCG TABLET PO SCH (05:55)
[2020-08-22 07:26] VITALS: BP 112/79
[2020-08-22] MEDS: VENLAFAXINE 75 MG CAP ER PO SCH (07:52)
[2020-08-22] MEDS: OXYcodone/APAP 10/325MG TABLET PO PRN ×3 (07:53→21:04)
[2020-08-22] MEDS: FAMOTIDINE 20 MG TABLET PO SCH ×2 (07:54→21:03)
[2020-08-22] MEDS: MAGNESIUM HYDROXIDE 8%, 30ML UDC PO SCH ×3 (07:57→21:00)
[2020-08-22] MEDS: ENOXAPARIN 40 MG/0.4 ML SQ SCH (11:05)
[2020-08-22 12:53] VITALS: BP 95/63
[2020-08-22] MEDS ORDERED: OXYcodone/APAP 10/325MG TABLET PO ONE (15:00)
[2020-08-22] MEDS: VANCOMYCIN 1,400 MG in SODIUM CHLORIDE 0.9% 250 ML IV SCH (17:06)
[2020-08-22] MEDS ORDERED: OXYcodone IR 5MG TABLET PO PRN (18:30)
[2020-08-22] MEDS ORDERED: LORazepam 1MG TABLET PO PRN (18:30)
[2020-08-22 19:03] VITALS: BP 106/70
[2020-08-23 00:40] VITALS: BP 104/70
[2020-08-23] MEDS: OXYcodone/APAP 10/325MG TABLET PO PRN ×2 (03:20→09:12)
[2020-08-23] MEDS: LEVOTHYROXINE 150 MCG TABLET PO SCH (06:12)
[2020-08-23 06:43] VITALS: BP 104/71
[2020-08-23 06:51] LABS: CREATININE 1.11 mg/dL (0.55-1.02)
[2020-08-23] MEDS: MAGNESIUM HYDROXIDE 8%, 30ML UDC PO SCH (09:00)
[2020-08-23] MEDS ORDERED: morphine SULFATE 10 MG/ML, 1ML IV PRN (09:00)
[2020-08-23] MEDS: VENLAFAXINE 75 MG CAP ER PO SCH (09:11)
[2020-08-23] MEDS: FAMOTIDINE 20 MG TABLET PO SCH (09:12)
[2020-08-23] MEDS ORDERED: LIDOCAINE 4% TOPICAL SOLUTION 50 ML TP ONE (10:00)
[2020-08-23] MEDS: VANCOMYCIN 1,400 MG in SODIUM CHLORIDE 0.9% 250 ML IV SCH (11:45)
[2020-08-23] MEDS: ENOXAPARIN 40 MG/0.4 ML SQ SCH (11:46)
[2020-08-23 12:50] VITALS: BP 105/72
[2020-08-23] MEDS ORDERED: ALPR0.5T93 PO (12:59)
[2020-08-23] MEDS ORDERED: OXYC-380 PO (12:59)
[2020-08-23] MEDS ORDERED: MAGN400O7 PO (12:59)
[2020-08-23] MEDS ORDERED: LIDO40SO TP (12:59)
[2020-08-23] MEDS ORDERED: OXYC5TAB98 PO (12:59)
[2020-08-23] MEDS ORDERED: VENL75CA6 PO (12:59)
[2020-08-26] MEDS ORDERED: LIDOCAINE 4% TOPICAL SOLUTION 50 ML TP ONE (09:00)
== END 2020-08-23 15:48 | disposition home or self-care (01) | DRG 514 ==
LOC: ORIP 08:19 → 4NE 22:16 → 4NW 07-22 10:42 → DCLOUNGE 08-23 15:38
PROVIDERS: ADMIT Specialist; ATTEND Specialist
PROC: 0DTQ0ZZ Resection of Anus, Open Approach (ICD-10-PCS; 2020-07-16)
PROC: 0DTP0ZZ Resection of Rectum, Open Approach (ICD-10-PCS; 2020-07-16)
PROC: 0TTB0ZZ Resection of Bladder, Open Approach (ICD-10-PCS; 2020-07-16)
PROC: 0T180ZC Bypass Bilateral Ureters to Ileocutaneous, Open Approach (ICD-10-PCS; 2020-07-16)
PROC: 0D1M0Z4 Bypass Descending Colon to Cutaneous, Open Approach (ICD-10-PCS; 2020-07-16)
PROC: 0DTJ0ZZ Resection of Appendix, Open Approach (ICD-10-PCS; 2020-07-16)
PROC: 0JB80ZZ Excision of Abdomen Subcutaneous Tissue and Fascia, Open Approach (ICD-10-PCS; 2020-07-16)
PROC: 0UU Female Reproductive System, Supplement (ICD-10-PCS; 2020-07-16)
PROC: 02HV33Z Insertion of Infusion Device into Superior Vena Cava, Percutaneous Approach (ICD-10-PCS; 2020-07-16)
PROC: 0UTG0ZZ Resection of Vagina, Open Approach (ICD-10-PCS; principal; 2020-07-16 12:00)
PROC: 30233N1 Transfusion of Nonautologous Red Blood Cells into Peripheral Vein, Percutaneous Approach (ICD-10-PCS; 2020-07-18)
PROC: 0JBB0ZZ Excision of Perineum Subcutaneous Tissue and Fascia, Open Approach (ICD-10-PCS; 2020-08-06)
PROC: 0WBN0ZZ Excision of Female Perineum, Open Approach (ICD-10-PCS; 2020-08-06)
PROC: 0JBB0ZZ Excision of Perineum Subcutaneous Tissue and Fascia, Open Approach (ICD-10-PCS; 2020-08-07)
DX: C54.1 Malignant neoplasm of endometrium (principal); C49.9 Malignant neoplasm of connective and soft tissue, unspecified; N17.9 Acute kidney failure, unspecified; D62 Acute posthemorrhagic anemia; E03.9 Hypothyroidism, unspecified; B37.89 Other sites of candidiasis; Z20.822 Contact with and (suspected) exposure to COVID-19; G47.00 Insomnia, unspecified; D47.3 Essential (hemorrhagic) thrombocythemia; F32.9 Major depressive disorder, single episode, unspecified; E86.9 Volume depletion, unspecified; K59.03 Drug induced constipation; T40.695A Adverse effect of other narcotics, initial encounter; K59.00 Constipation, unspecified; F41.9 Anxiety disorder, unspecified; T81.30XA Disruption of wound, unspecified, initial encounter; T81.41XA Infection following a procedure, superficial incisional surgical site, initial encounter; Y83.8 Other surgical procedures as the cause of abnormal reaction of the patient, or of later complication, without mention of misadventure at the time of the procedure; Y92.238 Other place in hospital as the place of occurrence of the external cause; L03.311 Cellulitis of abdominal wall; Z88.0 Allergy status to penicillin; Z79.899 Other long term (current) drug therapy; Z79.891 Long term (current) use of opiate analgesic
CPT/HCPCS: 36415; 71045; 71046; 74018; 74177; 74425; 80048; 80053; 80202; 82040; 82565; 83735; 84134; 84520; 85025; 85610; 85730; 86850; 86900; 86923; 87040; 87086; 87106; 87635; 88304; 88305; 88309; 88341; 88342; 93005; C1729; G0378; J0171; J0690; J1100; J1650; J1885; J2250; J2270; J2405; J2704; J2710; J2997; J3010; J3370; P9045; Q9967; C1765; C1769; C2617; J0330; J1200; J2060; J2800; J3480; J7050; J7120; P9016

== ENCOUNTER → 2020-12-06 | Outpatient (CLI) | payer MEDICAID ==
[~2020-12-06] MED LIST changes: +ALPR0.5T7 PO; +ALPR0.5T93 PO; +LIDO40SO TP; +MAGN400O7 PO; +OXYC-380 PO; +OXYC5TAB98 PO; +VENL75CA6 PO
[2020-12-06 11:46] LABS: BASOPHILS % (AUTO) 1 % (0-1); EOSINOPHILS % (AUTO) 2 % (1-7); LYMPHOCYTES % (AUTO) 26 % (22-44); MEAN CORPUSCULAR HEMOGLOBIN 30.3 pg (27.0-34.8); MEAN CORPUSCULAR HGB CONC 32.7 g/dL (32.4-35.8); MEAN PLATELET VOLUME 6.6 fL (7.4-10.4); MONOCYTES % (AUTO) 7 % (2-9); NEUTROPHILS % (AUTO) 64 % (42-75); PLATELET COUNT 396 x10^3/uL (130-400); RED BLOOD COUNT 3.96 x10^6/uL (3.82-5.3); RED CELL DISTRIBUTION WIDTH 18.5 % (9.6-15.2)
[2020-12-06 11:55] LABS: CHLORIDE 105 mmol/L (98-107); INTERNATIONAL NORMALIZED RATIO 0.92 (0.93-1.1); PROTHROMBIN TIME 9.9 Seconds (9.6-11.5)
[2020-12-06 12:03] LABS: ALANINE AMINOTRANSFERASE 22 U/L (12-78); ALBUMIN 3.3 g/dL (3.4-5.0); ALKALINE PHOSPHATASE 114 U/L (45-117); ANION GAP 7 mmol/L (5-15); BILIRUBIN,TOTAL 0.2 mg/dL (0.2-1.0); CALCIUM 9.2 mg/dL (8.5-10.1); CREATININE 1.02 mg/dL (0.55-1.02); TOTAL PROTEIN 8.1 g/dL (6.4-8.2)
== END | disposition home or self-care (01) ==
LOC: STAR 10:42
PROVIDERS: ATTEND Specialist
DX: Z01.818 Encounter for other preprocedural examination (principal); C55 Malignant neoplasm of uterus, part unspecified; C49.9 Malignant neoplasm of connective and soft tissue, unspecified; C77.2 Secondary and unspecified malignant neoplasm of intra-abdominal lymph nodes; C78.5 Secondary malignant neoplasm of large intestine and rectum; I45.2 Bifascicular block; Z20.822 Contact with and (suspected) exposure to COVID-19
CPT/HCPCS: 36415; 80053; 85025; 85610; 85730; 86304; 93005; U0003; U0005

== ENCOUNTER 2020-12-10 05:40 | Inpatient (IN) | payer MEDICAID ==
[~2020-12-10] VITALS: Ht 162.6 cm; Wt 75.0 kg
[2020-12-10 06:32] VITALS: BP 118/87
[2020-12-10] MEDS ORDERED: LIDOCAINE-MPF 1%, 2ML ONE (06:39)
[2020-12-10] MEDS ORDERED: CHLORHEXIDINE 15 ML UDC ONE (06:40)
[2020-12-10] MEDS ORDERED: EPINEPHRINE 1 MG/ML, 1ML ONE (06:49)
[2020-12-10] MEDS ORDERED: BUPIVACAINE/PF 0.25% ONE (06:49)
[2020-12-10] MEDS ORDERED: CEFOTETAN PMX 2GM/50ML 50 ML IVPB ONE (07:00)
[2020-12-10] MEDS ORDERED: LACTATED RINGERS 1,000 ML IV SCH (07:00)
[2020-12-10] MEDS ORDERED: LIDOCAINE-MPF 1%, 2ML INFIL ONE (07:00)
[2020-12-10] MEDS ORDERED: CHLORHEXIDINE 15 ML UDC PO ONE (07:00)
[2020-12-10] MEDS ORDERED: FENTANYL PF 250 MCG/5ML ONE (07:16)
[2020-12-10] MEDS ORDERED: MIDAZOLAM 1 MG/ML, 2ML ONE (07:16)
[2020-12-10] MEDS ORDERED: MEPERIDINE/PF 25MG/0.5ML IVPush PRN (08:30)
[2020-12-10] MEDS ORDERED: HYDROmorphone 1 MG/ML, 1ML INJ IV PRN (08:30)
[2020-12-10] MEDS ORDERED: ALBUTEROL SULFATE 2.5 MG/3 ML NPPB PRN (08:30)
[2020-12-10] MEDS ORDERED: OXYcodone 5 MG/5 ML ORAL.SOL UDC PO PRN (08:30)
[2020-12-10] MEDS ORDERED: LABETALOL 5MG/ML, 20ML IV PRN (08:30)
[2020-12-10] MEDS ORDERED: DIAZEPAM 5 MG/ML, 2ML IV PRN ×2 (08:30)
[2020-12-10] MEDS ORDERED: KETOROLAC 30 MG/1 ML IV PRN (08:30)
[2020-12-10] MEDS ORDERED: hydrALAzine 20 MG/ML, 1ML IV PRN (08:30)
[2020-12-10] MEDS ORDERED: ONDANSETRON 2MG/ML, 2ML IVPush PRN (08:30)
[2020-12-10] MEDS ORDERED: METOCLOPRAMIDE 5 MG/ML, 2ML IV PRN (08:30)
[2020-12-10] MEDS ORDERED: FENTANYL PF 100 MCG/2ML IV PRN (08:30)
[2020-12-10] MEDS ORDERED: PROMETHAZINE 25 MG/ML, 1ML IV PRN (08:30)
[2020-12-10] MEDS ORDERED: ACETAMINOPHEN 650 MG/20.3 ML UDC ONE (09:46)
[2020-12-10] MEDS ORDERED: FENTANYL PF 100 MCG/2ML ONE (09:46)
[2020-12-10] MEDS ORDERED: OXYcodone 5 MG/5 ML ORAL.SOL UDC ONE (09:46)
== END 2020-12-10 11:35 | disposition home or self-care (01) | DRG 518 ==
LOC: ORIP 05:40
PROVIDERS: ADMIT Specialist; ATTEND Specialist
PROC: 0UTM0ZZ Resection of Vulva, Open Approach (ICD-10-PCS; principal; 2020-12-10 07:30)
DX: C55 Malignant neoplasm of uterus, part unspecified (principal); C78.5 Secondary malignant neoplasm of large intestine and rectum; N90.89 Other specified noninflammatory disorders of vulva and perineum
CPT/HCPCS: 88309; 88341; 88342; J0171; J2250; J3010; J7120